=== PATIENT | male | born 1970 | race Caucasian/White ===

== ENCOUNTER → 2021-12-27 15:21 | Outpatient (BNVA) | payer OTHER, SELFPAY | PROVIDERS: PCP Emergency Medicine Emergency Medical Services; Referring Provider Emergency Medicine Emergency Medical Services; Visit Provider Internal Medicine | DX: E10.40 Type 1 diabetes mellitus with diabetic neuropathy, unspecified (principal); E10.22 Type 1 diabetes mellitus with diabetic chronic kidney disease; N18.9 Chronic kidney disease, unspecified; Z79.4 Long term (current) use of insulin; N52.9 Male erectile dysfunction, unspecified; E78.5 Hyperlipidemia, unspecified; R00.0 Tachycardia, unspecified; E55.9 Vitamin D deficiency, unspecified | CPT/HCPCS: 99204 ==

== ENCOUNTER 2023-02-21 14:43 | Inpatient (IN) | payer OTHER, SELFPAY ==
[2023-02-21 14:46] VITALS: BP 114/62; PULSE 98; RESP 14; TEMP 36.6; O2SAT 96; BMI 23.0
--- NOTE | 2023-02-21 15:03 | XRR_ITS ---
PROCEDURE INFORMATION: Exam: XR Chest Exam date and time: 02/21/2023 3:06 PM Age: 52 years old Clinical indication: Pain; Patient HX: Weakness; Fatigue; Chest pressure TECHNIQUE: Imaging protocol: Radiologic exam of the chest. Views: 1 view. COMPARISON: No relevant prior studies available. FINDINGS: Lungs: Unremarkable. No consolidation. Pleural spaces: Unremarkable. No pleural effusion. No pneumothorax. Heart/Mediastinum: Unremarkable. No cardiomegaly. Bones/joints: Unremarkable. XR/XR chest 1V portable [id number] IMPRESSION: No acute findings.
--- NOTE | 2023-02-21 15:03 | W.ED.WEAKNES ---
Documented by User: MARCELLA Thornton 02/25/23 07:19 HPI - Weakness General: Chief complaint: Weakness Stated complaint: [facility] Time Seen by Provider: 02/21/23 14:48 Source: patient and family (friend) Mode of arrival: EMS Limitations: no limitations History of Present Illness: Patient is a nice 52-year-old male who presents to ED today at the request of the MD. Patient states [facility] and they noted him to be pale and diaphoretic. They try to obtain EKG but could not get stickers on him due to the sweatiness. They sent him to the emergency department for further evaluation. Patient upon arrival only has the complaint of generalized fatigue and weakness that he states has been present for many months. He has no acute complaints at this time. He does not complain of chest pain, shortness of breath, difficulty breathing. He states his only past medical history is diabetes. Reports states at the MD blood sugars were in the 300s by EMS got a blood sugar of 88. Patient states his blood sugars normally run anywhere from 250-300. MD Complaint: generalized weakness (fatigue) Onset (ago): month(s) Duration: constant Location: generalized Migration: none Severity: moderate Relieving factors: none Exacerbating factors: none Associated symptoms: Reports no associated symptoms; Denies chest pain, chills, confusion, dysuria, fever(s), headache(s), nausea, syncope or vomiting Review of Systems Const: Reports: other (reports generalized fatigue); Denies: fever(s), chills, body aches or malaise Eyes: Denies: change in vision or blurry vision Card: Denies: chest pain, palpitations, irregular heart rhythm, lightheadedness, syncope or dyspnea on exertion Resp: Denies: dyspnea, productive cough or pain on inspiration GI: Denies: abdominal pain, nausea, vomiting, heartburn or diarrhea : Denies: difficulty urinating or dysuria Musc: Denies: neck pain, back pain or joint pain Skin/Breast: Denies: rash Neuro: Denies: headache(s), numbness in extremities, weakness in extremities, sensory changes, lack of coordination, difficulty walking, dizziness, confusion or behavioral changes [facility] ED PFSH: Medical History Hyperlipidemia Hypertension Type 1 diabetes Surgical History History of inguinal hernia repair History of thumb surgery Social History Smoking and tobacco status: never smoked Physical Exam Const: COMMON NORMALS: no acute distress, patient oriented x3, no limitations, alert and well nourished GENERAL APPEARANCE: cooperative and appears older than stated age ORIENTATION/CONSCIOUSNESS: Yes awake, Yes oriented to person, Yes oriented to place and Yes oriented to time OTHER: appears slightly pale; states he feels tired HENMT: COMMON NORMALS: normocephalic and atraumatic HEAD & SCALP: normal to inspection, normocephalic and atraumatic Eye: COMMON NORMALS: no scleral icterus Neck/C-Spine: COMMON NORMALS: full ROM, no lymphadenopathy, supple and no meningeal signs Chest: COMMONS NORMALS: normal inspection of the chest and normal palpation of entire chest wall Resp: COMMON NORMALS: normal respiratory effort and clear to auscultation bilaterally AUSCULTATION: clear to auscultation bilaterally Cardio: COMMON NORMALS: regular rate and regular rhythm RATE: regular rate RHYTHM: regular rhythm GI: COMMON NORMALS: Normal to inspection, nondistended, normoactive bowel sounds present, Soft to palpation, non-tender, No hepatosplenomegaly present and no masses PALPATION: Yes Soft to palpation and Yes No hepatosplenomegaly present : COMMON NORMALS: Yes no CVA tenderness BLADDER/KIDNEY EXAM: Yes no CVA tenderness Back/Pelvis: COMMON NORMALS: no CVA tenderness, thoracic and lumbar spine normal to inspection, no thoracic nor lumbar tenderness and thoraco-lumbar ROM normal Extremity: COMMON NORMALS: normal to inspection, capillary refill normal, no joint enlargement, no clubbing, cyanosis or edema, no calf tenderness and no pedal edema GENERAL: Yes normal exam except as noted Neuro: EMANUEL COMA SCALE: document GCS findings Emanuel coma scale eye opening: Spontaneous [place] coma scale verbal response: Orientated [place] coma scale motor response: Obey commands [place] coma scale total score: 15 COMMON NORMALS: patient oriented x3, CN's II-XII intact bilaterally, moves all extremities, no focal motor deficits and no sensory deficits noted SENSORIUM/ORIENTATION: Yes alert, Yes oriented to person, Yes oriented to place and Yes oriented to time MENINGEAL SIGNS: Yes no meningeal signs Skin: COMMON NORMALS: no rashes or lesions noted GENERAL SKIN EXAM: no rashes or lesions noted Course Consultations: Consultation #1: Dr. Prakash-reviewed EKG, agrees with heparin anticoagulation, would like to continue to trend troponins, recommend have patient NPO at midnight and he will consult on need for possible cath Consultation #2: Dr. Billingsley-accepts hospitalization Vital Signs: Vital signs: Vital Signs Temperature 97.8 F 02/24/23 04:00 Pulse Rate 94 02/24/23 09:24 Respiratory Rate 29 H 02/24/23 04:00 Blood Pressure 155/88 02/24/23 04:00 Pulse Oximetry 99 02/24/23 04:00 Oxygen Delivery Me thod Room Air 02/24/23 08:00 MDM - Weakness Medical Decision Making Patient is a nice 52-year-old male with a history of diabetes here [facility] Apparently while there he became pale and diaphoretic. EKG was not able to be obtained. They called an ambulance to bring patient here. Upon arrival patient's only complaint is fatigue and weakness which she states has been present for several months. Patient has had no complaints of chest pain. EKG obtained showing inverted T waves in inferior leads. Baseline troponin is 152. Glucose in the 40s on CMP. He was given juice and will recheck. Discussed with Dr. Prakash who agrees with heparin anticoagulation. Recommend continuing to trend troponins. NPO at midnight. We will consult on patient and the need for cardiac cath. Spoke to Dr. Billingsley who will admit the patient. Dr. Robles aware of patient and agrees with care plan. Lab Data 02/23/23 05:30 02/24/23 03:23 Radiology Impressions Chest X-Ray 02/21/23 15:03 IMPRESSION: No acute findings. Laboratory Results WBC 6.42 10^3/uL (3.29-11.43) 02/21/23 15:17 RBC 3.55 10^6/uL (3.85-5.65) L 02/21/23 15:17 Hgb 10.20 g/dL (11.27-16.99) L 02/21/23 15:17 Hct 29.2 % (37-53) L 02/21/23 15:17 MCV 82.3 fl (82-101) 02/21/23 15:17 MCH 28.7 pg (27-33) 02/21/23 15:17 MCHC 34.9 g/dL (30-55) 02/21/23 15:17 RDW 12.5 % (12.1-15.1) 02/21/23 15:17 Plt Count 284 10^3/cmm (157-399) 02/21/23 15:17 MPV 7.7 fL (7.4-10.4) 02/21/23 15:17 Neut % (Auto) 53.6 % 02/21/23 15:17 Lymph % (Auto) 29.8 % 02/21/23 15:17 Gillespie % (Auto) 9.5 % 02/21/23 15:17 Eos % (Auto) 4.2 % 02/21/23 15:17 Baso % (Auto) 1.7 % 02/21/23 15:17 Neut # (Auto) 3.44 10^3/uL (1.8-7.7) 02/21/23 15:17 Lymph # (Auto) 1.9 10^3/uL (0.8-4.8) 02/21/23 15:17 Gillespie # (Auto) 0.6 10^3/uL (0.2-0.9) 02/21/23 15:17 Eos # (Auto) 0.3 10^3/uL (0.0-0.8) 02/21/23 15:17 Baso # (Auto) 0.1 10^3/uL (0.0-0.1) 02/21/23 15:17 Nucleated RBC % (auto) 0 % 02/21/23 15:17 Nucleated RBCs # 0.0 /100WBC 02/21/23 15:17 D-Dimer 0.80 ug/mLFEU (0-0.59) H 02/21/23 15:17 Sodium 139 mmol/L (136-145) 02/21/23 15:17 Potassium 4.0 mmol/L (3.5-5.1) 02/21/23 15:17 Chloride 101 mmol/L (98-107) 02/21/23 15:17 Carbon Dioxide 27 mmol/L (22-29) 02/21/23 15:17 Anion Gap 15.0 (5-19) 02/21/23 15:17 BUN 26 mg/dL (6-20) H 02/21/23 15:17 Creatinine 1.5 mg/dL (0.7-1.2) H 02/21/23 15:17 GFR Calculation 49.3 mL/min (90-130) L 02/21/23 15:17 Glucose 46 mg/dL (65-115) L 02/21/23 15:17 Estimat Average Glucose 364 02/21/23 15:17 Hemoglobin A1c 14.3 % (4.0-6.0) H 02/21/23 15:17 Calculated Osmolality 290 mOsm/kg (285-295) 02/21/23 15:17 Calcium 8.7 mg/dL (8.5-10.5) 02/21/23 15:17 Total Bilirubin 0.2 mg/dL (0.15-1.2) 02/21/23 15:17 AST 11 U/L (0-40) 02/21/23 15:17 ALT 13 U/L (0-41) 02/21/23 15:17 Alkaline Phosphatase 153 U/L (40-130) H 02/21/23 15:17 Troponin T Baseline 152 ng/L (0-15) H* 02/21/23 15:17 Total Protein 5.8 g/dL (6.6-8.7) L 02/21/23 15:17 Albumin 3.5 g/dL (3.5-5.2) 02/21/23 15:17 Globulin 2.3 g/dL (1.3-4.6) 02/21/23 15:17 Urine Color Straw (Yellow) 02/21/23 15:48 Urine Appearance Clear (CLEAR) 02/21/23 15:48 Urine pH 5 (5-7) 02/21/23 15:48 Ur Specific [place] 1.010 (1.005-1.030) 02/21/23 15:48 Urine Protein 2+ (Negative) H 02/21/23 15:48 Urine Glucose (UA) 4+ (Normal) H 02/21/23 15:48 Urine Ketones Negative (Negative) 02/21/23 15:48 Urine Blood 3+ (Negative) H 02/21/23 15:48 Urine Nitrate Negative (Negative) 02/21/23 15:48 Urine Bilirubin Neg (Negative) 02/21/23 15:48 Urine Urobilinogen Norm mg/dL (Negative) 02/21/23 15:48 Ur Leukocyte Esterase Negative (Negative) 02/21/23 15:48 Urine RBC 5-10 /hpf (0-2) H 02/21/23 15:48 Urine WBC 0-4 /hpf (0-5) H 02/21/23 15:48 Ur Squamous Epith Cells 0-4 /hpf (0-5) H 02/21/23 15:48 Amorphous Sediment Not Reportable 02/21/23 15:48 Urine Bacteria Trace /hpf (NONE) 02/21/23 15:48 All radiology interpretation(s) finalized by discharge EKG Data EKG 1: EKG interpretation date: 02/21/23 EKG interpretation time: 15: Prior EKG tracings: not available for review Ischemic changes: acute NSTEMI Interpretation: Patient has inverted inferior T waves Sinus rhythm Rate 85 Discharge Plan Discharge Patient Disposition: Admitted As Inpatient Admit Provider: Ammon Billingsley Clinical Impression: Hypoglycemia, Acute non-ST elevation myocardial infarction (NSTEMI) Condition: Stable Discharge Diet: Cardiac Coding Level of Care Code ED Media Production Manager for Chg Fwd Documented by User: Walter Robles MD 02/21/23 17:10 HPI - Weakness General: Chief complaint: Weakness Stated complaint: [facility] Time Seen by Provider: 02/21/23 14:48 PFSH ED PFSH: Medical History Hyperlipidemia Hypertension Type 1 diabetes Surgical History History of inguinal hernia repair History of thumb surgery Social History Smoking and tobacco status: never smoked Physical Exam Neuro: EMANUEL COMA SCALE: document GCS findings [place] coma scale total score: 15 Course Vital Signs: Vital signs: Vital Signs Temperature 97.8 F 02/24/23 04:00 Pulse Rate 94 02/24/23 09:24 Respiratory Rate 29 H 02/24/23 04:00 Blood Pressure 155/88 02/24/23 04:00 Pulse Oximetry 99 02/24/23 04:00 Oxygen Delivery Me thod Room Air 02/24/23 08:00 MDM - Weakness Medical Decision Making Patient is a nice 52-year-old male with a history of diabetes here after he was sent from the [facility]. Apparently while there he became pale and diaphoretic. EKG was not able to be obtained. They called an ambulance to bring patient here. Upon arrival patient's only complaint is fatigue and weakness which she states has been present for several months. Patient has had no complaints of chest pain. EKG obtained showing inverted T waves in inferior leads. Baseline troponin is 152. Glucose in the 40s on CMP. He was given juice and will recheck. Discussed with Dr. Prakash who agrees with heparin anticoagulation. Recommend continuing to trend troponins. NPO at midnight. We will consult on patient and the need for cardiac cath. Spoke to Dr. Billingsley who will admit the patient. Dr. Robles aware of patient and agrees with care plan. Dr. Robles Discussed case with Dorothea. Reviewed EKG. Reviewed labs. Reviewed vitals. Discussed plan of action and encouraged heparin drip, cardiology consult, admission for NSTEMI and abnormal EKG. Lab Data 02/23/23 05:30 02/24/23 03:23 Radiology Impressions Chest X-Ray 02/21/23 15:03 IMPRESSION: No acute findings. Laboratory Results WBC 6.42 10^3/uL (3.29-11.43) 02/21/23 15:17 RBC 3.55 10^6/uL (3.85-5.65) L 02/21/23 15:17 Hgb 10.20 g/dL (11.27-16.99) L 02/21/23 15:17 Hct 29.2 % (37-53) L 02/21/23 15:17 MCV 82.3 fl (82-101) 02/21/23 15:17 MCH 28.7 pg (27-33) 02/21/23 15:17 MCHC 34.9 g/dL (30-55) 02/21/23 15:17 RDW 12.5 % (12.1-15.1) 02/21/23 15:17 Plt Count 284 10^3/cmm (157-399) 02/21/23 15:17 MPV 7.7 fL (7.4-10.4) 02/21/23 15:17 Neut % (Auto) 53.6 % 02/21/23 15:17 Lymph % (Auto) 29.8 % 02/21/23 15:17 Gillespie % (Auto) 9.5 % 02/21/23 15:17 Eos % (Auto) 4.2 % 02/21/23 15:17 Baso % (Auto) 1.7 % 02/21/23 15:17 Neut # (Auto) 3.44 10^3/uL (1.8-7.7) 02/21/23 15:17 Lymph # (Auto) 1.9 10^3/uL (0.8-4.8) 02/21/23 15:17 Gillespie # (Auto) 0.6 10^3/uL (0.2-0.9) 02/21/23 15:17 Eos # (Auto) 0.3 10^3/uL (0.0-0.8) 02/21/23 15:17 Baso # (Auto) 0.1 10^3/uL (0.0-0.1) 02/21/23 15:17 Nucleated RBC % (auto) 0 % 02/21/23 15:17 Nucleated RBCs # 0.0 /100WBC 02/21/23 15:17 D-Dimer 0.80 ug/mLFEU (0-0.59) H 02/21/23 15:17 Sodium 139 mmol/L (136-145) 02/21/23 15:17 Potassium 4.0 mmol/L (3.5-5.1) 02/21/23 15:17 Chloride 101 mmol/L (98-107) 02/21/23 15:17 Carbon Dioxide 27 mmol/L (22-29) 02/21/23 15:17 Anion Gap 15.0 (5-19) 02/21/23 15:17 BUN 26 mg/dL (6-20) H 02/21/23 15:17 Creatinine 1.5 mg/dL (0.7-1.2) H 02/21/23 15:17 GFR Calculation 49.3 mL/min (90-130) L 02/21/23 15:17 Glucose 46 mg/dL (65-115) L 02/21/23 15:17 Estimat Average Glucose 364 02/21/23 15:17 Hemoglobin A1c 14.3 % (4.0-6.0) H 02/21/23 15:17 Calculated Osmolality 290 mOsm/kg (285-295) 02/21/23 15:17 Calcium 8.7 mg/dL (8.5-10.5) 02/21/23 15:17 Total Bilirubin 0.2 mg/dL (0.15-1.2) 02/21/23 15:17 AST 11 U/L (0-40) 02/21/23 15:17 ALT 13 U/L (0-41) 02/21/23 15:17 Alkaline Phosphatase 153 U/L (40-130) H 02/21/23 15:17 Troponin T Baseline 152 ng/L (0-15) H* 02/21/23 15:17 Total Protein 5.8 g/dL (6.6-8.7) L 02/21/23 15:17 Albumin 3.5 g/dL (3.5-5.2) 02/21/23 15:17 Globulin 2.3 g/dL (1.3-4.6) 02/21/23 15:17 Urine Color Straw (Yellow) 02/21/23 15:48 Urine Appearance Clear (CLEAR) 02/21/23 15:48 Urine pH 5 (5-7) 02/21/23 15:48 Ur Specific [place] 1.010 (1.005-1.030) 02/21/23 15:48 Urine Protein 2+ (Negative) H 02/21/23 15:48 Urine Glucose (UA) 4+ (Normal) H 02/21/23 15:48 Urine Ketones Negative (Negative) 02/21/23 15:48 Urine Blood 3+ (Negative) H 02/21/23 15:48 Urine Nitrate Negative (Negative) 02/21/23 15:48 Urine Bilirubin Neg (Negative) 02/21/23 15:48 Urine Urobilinogen Norm mg/dL (Negative) 02/21/23 15:48 Ur Leukocyte Esterase Negative (Negative) 02/21/23 15:48 Urine RBC 5-10 /hpf (0-2) H 02/21/23 15:48 Urine WBC 0-4 /hpf (0-5) H 02/21/23 15:48 Ur Squamous Epith Cells 0-4 /hpf (0-5) H 02/21/23 15:48 Amorphous Sediment Not Reportable 02/21/23 15:48 Urine Bacteria Trace /hpf (NONE) 02/21/23 15:48 Discharge Plan Discharge Patient Disposition: Admitted As Inpatient Admit Provider: Ammon Billingsley Clinical Impression: Hypoglycemia, Acute non-ST elevation myocardial infarction (NSTEMI) Condition: Stable Discharge Diet: Cardiac Coding Level of Care Code ED Media Production Manager for Jason Hillman
--- NOTE | 2023-02-21 15:04 | PC.PHAR ---
WILNER ROBERTSON FOR MED LIST 02/21/23 3:05 PM
[2023-02-21 15:19] VITALS: BP 114/62; PULSE 93; RESP 18; O2SAT 96
--- NOTE | 2023-02-21 15:23 | ECG_ITS ---
[facility] Test Date: 2023-02-21 Pat Name: Trang Teran Department: Room: Gender: Male Lav Crewman: : 1970 Requested By: Dorothea Bloom Order Number: [id number] Macdonald MD: Bertrand Zamora M.D. Measurements Intervals [place] Rate: 85 P: 59 ID: [id number] QRS: 62 QRSD: 130 T: 177 QT: 360 QTc: 429 Interpretive Statements SINUS RHYTHM PROBABLE INFERIOR MYOCARDIAL INFARCTION , PROBABLY OLD [35 ms Q WAVE IN II/aVF] MODERATE T-WAVE ABNORMALITY, CONSIDER LATERAL ISCHEMIA [-0.1+ mV T-WAVE IN I/aVL/V5/V6] No previous ECG available for comparison Electronically Signed On 02-21-2023 16:20:02 CDT by Bertrand Zamora M.D. [id number]
[2023-02-21 15:25] LABS: Basophils # 0.1 10^3/uL (0.0-0.1); Basophils % 1.7 %; Eosinophils # 0.3 10^3/uL (0.0-0.8); Eosinophils % 4.2 %; Hematocrit 29.2 % (37-53); Lymphocytes # 1.9 10^3/uL (0.8-4.8); Lymphocytes % 29.8 %; Mean Corpuscular HGB Conc 34.9 g/dL (30-55); Mean Corpuscular Hemoglobin 28.7 pg (27-33); Mean Corpuscular Volume 82.3 fl (82-101); Mean Platelet Volume 7.7 fL (7.4-10.4); Monocytes # 0.6 10^3/uL (0.2-0.9); Monocytes % 9.5 %; Neutrophils # 3.44 10^3/uL (1.8-7.7); Neutrophils % 53.6 %; Nucleated Red Blood Cells % 0 %; Platelet Count 284 10^3/cmm (157-399); Red Blood Count 3.55 10^6/uL (3.85-5.65); Red Cell Distribution Width 12.5 % (12.1-15.1); White Blood Count 6.42 10^3/uL (3.29-11.43)
[2023-02-21 15:50] VITALS: BP 113/51; PULSE 98; RESP 18; O2SAT 99
[2023-02-21 15:51] LABS: Alanine Aminotransferase 13 U/L (0-41); Albumin Level 3.5 g/dL (3.5-5.2); Alkaline Phosphatase 153 U/L (40-130); Aspartate Amino Transferase 11 U/L (0-40); Blood Urea Nitrogen 26 mg/dL (6-20); Calcium 8.7 mg/dL (8.5-10.5); Carbon Dioxide 27 mmol/L (22-29); Chloride 101 mmol/L (98-107); Globulin 2.3 g/dL (1.3-4.6); Glomerular Filtration Rate 49.3 mL/min (90-130); Glucose 46 mg/dL (65-115); Osmolality Calculated 290 mOsm/kg (285-295); Sodium 139 mmol/L (136-145); Total Bilirubin 0.2 mg/dL (0.15-1.2); Total Protein 5.8 g/dL (6.6-8.7)
[2023-02-21 15:52] LABS: Troponin(5th) Baseline 152 ng/L (0-15)
[2023-02-21 16:12] LABS: Urine Appearance Clear (CLEAR); Urine Color Straw (Yellow)
[2023-02-21 16:13] LABS: Add Urine Culture? No; Add Urine Microscopic? YES; Bacteria Urine TRACE /hpf; Bilirubin Urine Neg (Negative); Blood Urine 3+ (Negative); Glucose Urine UA 4+ (Normal); Ketones Urine Negative (Negative); Leukocyte Esterase Urine Negative (Negative); Nitrate Urine Negative (Negative); Protein Urine 2+ (Negative); Squamous Epithelial Cell Urine 0-4 /hpf (0-5); Urobilinogen Urine Norm (Negative); WBC Urine 0-4 /hpf (0-5); pH Urine 5 (5-7)
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
[2023-02-21] MEDS: heparin 5,000 unit/mL INJ 1 mL IV ×2 (16:35→23:26)
[2023-02-21] MEDS: heparin drip 25,000 UNIT/500 ML PREMIX 22 UNIT IV (16:40)
[2023-02-21 16:41] VITALS: BP 132/70; PULSE 90; RESP 18; O2SAT 99
[2023-02-21 16:47] LABS: Glucose Point of Care 204 mg/dL (70-110)
--- NOTE | 2023-02-21 17:12 | ECG_ITS ---
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 Measurements Intervals [place] Rate: 87 P: 47 VA: 187 QRS: 24 QRSD: 118 T: 184 QT: 379 QTc: 457 Interpretive Statements SINUS RHYTHM INFERIOR MYOCARDIAL INFARCTION , PROBABLY OLD [40+ ms Q WAVE AND/OR ST/T ABNORMALITY IN II/aVF] MODERATE T-WAVE ABNORMALITY, CONSIDER LATERAL ISCHEMIA [-0.1+ mV T-WAVE IN I/aVL/V5/V6] Compared to ECG 02/21/2023 15:23:06 No significant changes Electronically Signed On 02-21-2023 17:37:29 CDT by Bertrand Zamora M.D. [email or web address]/[id number]
[2023-02-21 17:42] LABS: Troponin 5 2HR Delta -34.1 ABS# (0-10)
[2023-02-21 17:43] LABS: Troponin 5 2HR 117.9 ng/L (0-15)
--- NOTE | 2023-02-21 17:43 | P.CONIM_ITS ---
Providers/Reason For Consult Consulting Physician/Specialty*: Bertrand Zamora MD/ Cardiology Reason for Consult*: NSTEMI Requesting Physician: Dr Billingsley Attending Physician: Ammon Billingsley MD Primary Care Provider: Jhonatan Malloy DO History of Present Illness History of Present Illness Trang Teran is a 52 year old male with no significant prior cardiac history, history of hypertension, hyperlipidemia, diabetes who was sent from [place] [facility] after he got weak and sweaty there. He was found to have elevated troponin over 150. It has trended down. He denies significant chest discomfort however still feeling weak. One of his initial blood glucose levels were 46. EKG shows normal sinus rhythm with possible lateral ischemia. 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) blood-glucose sensor (Dexcom G6 #9 ea 12/27/21 02/21/23 Unknown Rx Sensor device) blood-glucose transmitter (Dexcom #3 ea 12/27/21 02/21/23 Unknown Rx G6 Transmitter device) cholecalciferol (vitamin D3) 50 50 mcg PO DAILY 12/27/21 02/21/23 02/21/23 History mcg (2,000 unit) capsule insulin aspart U-100 100 unit/mL 20 unit SUBCUT TID 12/27/21 02/21/23 02/21/23 History subcutaneous cartridge insulin glargine 100 unit/mL 20 unit SUBCUT DAILY 12/27/21 02/21/23 02/20/23 History subcutaneous solution insulin syringe-needle U-100 1 mL 12/27/21 02/21/23 Unknown History 31 gauge x 5/16 (BD Insulin Syringe Ultra-Fine) lancets (Accu-Chek Softclix 12/27/21 02/21/23 Unknown History Lancets) Allergies Allergy/AdvReac Type Severity Reaction Status Date / Time No Known Allergies Allergy Verified 02/21/23 14:53 Current Medications Generic Name Dose Route Start Last Admin Trade Name Freq PRN Reason Stop Dose Admin Heparin Sodium (Porcine) 0 unit 02/21/23 16:29 02/21/23 16:35 Heparin 5,000 Unit/Ml Inj 1 Ml IV 3,900 unit PRN PRN Administration Heparin weight-base protocol Protocol Heparin Sodium/Sodium Chloride 25,000 unit in 500 mls @ 0 mls/hr 02/21/23 16:3 0 02/21/23 16:40 Heparin Drip IV 14.27 unit/kg/hr .Q0M AMOS 22 mls/hr Administration Protocol Per Protocol PFSH Acute PFSH: Medical History Hyperlipidemia Hypertension Type 1 diabetes Surgical History History of inguinal hernia repair History of thumb surgery Social History Smoking and tobacco status: never smoked Vitals/I&O/Wt Last Vital Signs Temp 97.8 F 02/21/23 14:46 Pulse 90 02/21/23 16:41 Resp 18 02/21/23 16:41 BP 132/70 02/21/23 16:41 Pulse Ox 99 02/21/23 16:41 O2 Del Method Room Air 02/21/23 16:41 Weight last 48 hrs Weight 170 lb Physical Exam Narrative: GENERAL: Patient is alert, awake and oriented x3. [] NECK: No jugular vein distension. [] HEENT: No cyanosis. No icterus. No pallor. [] HEART: Regular S1 and S2. No murmur, rub or gallop. [] LUNGS: Clear to auscultate bilaterally. [] CENTRAL NERVOUS SYSTEM: Grossly nonfocal. [] EXTREMITIES: Lower extremities with 1+ edema bilaterally. Pulses palpable in the lower extremities, both dorsalis pedis and posterior tibial. [] Data 02/22/23 05:29 02/22/23 05:29 A&P Assessment and plan (1) Troponin level elevated: (2) Type 1 diabetes: (3) Hyperlipidemia: (4) CKD (chronic kidney disease): Plan Patient's symptoms are atypical. Diaphoresis and weakness could be secondary to hypoglycemia. Troponins are trending down. We will proceed with stress test tomorrow. If it is abnormal, we will proceed with coronary angiogram with possible percutaneous coronary intervention. Medical therapy per primary team Continue aspirin IV fluids Order echocardiogram Thank you for involving us with care of this patient. We will continue to follow. Please call with questions. Consult Attestations Medical Necessity Statement: Care expected to cross 2 midnights. Coding Level [facility] Troponin level elevated R77.8 Type 1 diabetes E10.9 Hyperlipidemia E78.5 CKD (chronic kidney disease) N18.9
--- NOTE | 2023-02-21 18:02 | USCV_ITS ---
Trang Teran Age: 52 Gender: M : 1970 Exam Date: 02/21/2023 18:36 Ordering Phys: Ammon Billingsley MD Technologist: LG Exam Location: [facility] [place] Indication: NSTEMI. No history of cardiac intervention per patient. BP: 132 / 70 HR: 92 Rhythm: Sinus Technical Quality: Adequate MEASUREMENTS (Male / Female) Normal Values 2D ECHO LV Diastolic Diameter PLAX 4.9 cm 4.2 - 5.9 / 3.9 - 5.3 cm LV Systolic Diameter PLAX 3.9 cm IVS Diastolic Thickness 1.6 cm 0.6 - 1.0 / 0.6 - 0.9 cm IVS Systolic Thickness 2.2 cm LVPW Diastolic Thickness 1.7 cm 0.6 - 1.0 / 0.6 - 0.9 cm LVPW Systolic Thickness 2.1 cm LVOT Diameter 2.3 cm LV Ejection Fraction 2D Teich 40.3 % LV Ejection Fraction MOD 2C 57.8 % LV Ejection Fraction 2C AL 59.7 % LA Diameter 4.9 cm LA Width 4.4 cm LA Height 5.5 cm RA Width 3.2 cm RA Height 4.6 cm Aorta at Sinotubular Diameter 3.1 cm IVC Diameter 1.8 cm M-MODE Aortic Annulus Diameter 3.3 cm LA Ao Ratio MM 1.5 MV E Point Septal Separation 0.6 cm DOPPLER AV Peak Velocity 92.0 cm/s LVOT Peak Velocity 54.0 cm/s AV Area Cont Eq vti 2.5 cm squared AV Area Cont Eq pk 2.4 cm squared MV Peak Velocity 90.0 cm/s MV Area PHT 2.2 cm squared Mitral E to A Ratio 1.1 MV E' Velocity 48.6 cm/s Mitral E to MV E' Ratio 12.6 Mitral E to LV E' Lateral Ratio 11.7 Mitral E to LV E' Septal Ratio 13.9 TV Peak E Velocity 44.0 cm/s PV Peak Velocity 72.0 cm/s RV Acceleration Time 0.1 s RV Ejection Time 0.3 s RV AcT/ET 0.4 FINDINGS Left Ventricle Mild diffuse hypokinesia of the left ventricle with an ejection fraction of around 40% Right Ventricle The right ventricle is normal in size and function. Right Atrium The right atrium is normal in size. Left Atrium Mildly increased left atrial size. Mitral Valve Mild mitral valve regurgitation. Aortic Valve Minimally thickened aortic valve Tricuspid Valve Trace to mild tricuspid valve regurgitation. Pulmonic Valve Trace pulmonary valve regurgitation. Pericardium Normal pericardium without effusion. Aorta Normal ascending aorta dimension. IVC The inferior vena cava appears normal. CONCLUSIONS Mild diffuse hypokinesia of the left ventricle with an ejection fraction of around 40%. Mildly increased left atrial size. Mild mitral valve regurgitation. Trace to mild tricuspid valve regurgitation. Trace pulmonary valve regurgitation. PA pressure could not be calculated because of the poor Doppler signal There is no pericardial effusion. There are no intracardiac masses. No similar previous studies are available for comparison Dr Lizette Bartlett MD [facility] (Electronically Signed) Final Date: 22 February 2023 11:07 S
[2023-02-21 18:16] LABS: Glucose Point of Care 237 mg/dL (70-110)
--- NOTE | 2023-02-21 18:21 | ECG_ITS ---
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 Interpretive Statements NAME OF STUDY: LEXISCAN SESTAMIBI STRESS TEST INDICATION: [UA, ] Procedure: At the baseline, the blood pressure was 103/60 mmHg with a heart rate of 90 bpm. The electrocardiogram showed normal sinus rhythm, normal axis with normal ST and T's and interventricular conduction delay. The Lexiscan was infused over a period of 20 seconds. A total of 0.4 mg of Lexiscan was infused. The stress phase was continued for a total of 5 minutes. Heart rate was at the end of stress phase was 97 bpm and a blood pressure of 99/53 mmHg. The EKG at the peak infusion revealed normal sinus rhythm with no significant ST-T wave changes. Sestamibi was injected 20 seconds after the Lexiscan infusion. Blood pressure at the end of recovery phase was 86/49 mmHg with a heart rate of 83 bpm. Conclusion: 1. Normal EKG response to Lexiscan infusion 2. No Lexiscan induced chest pain or cardiac arrhythmia. 3. Normal blood pressure and heart rate response. 4. Sestamibi/sestamibi perfusion scan pending; see separate report. Electronically Signed On 03-04-2023 12:30:59 CDT by Bertrand Zamora M.D. [id number]
[2023-02-21] MEDS: insulin lispro 100 unit/1 mL SUBCUT (18:30)
[2023-02-21] MEDS: aspirin 325 mg EC Tablet PO (18:30)
[2023-02-21 18:58] LABS: Thyroid Stimulating Hormone 2.74 uIU/mL (0.27-4.20); Vitamin B12 424 pg/mL (232-1245)
[2023-02-21 19:52] LABS: Estmated Average Glucose 364; Hemoglobin A1C 14.3 % (4.0-6.0)
[2023-02-21 20:48] VITALS: BP 152/77; PULSE 93; RESP 23; TEMP 37.2; O2SAT 91
[2023-02-21 21:12] LABS: Glucose Point of Care 299 mg/dL (70-110)
[2023-02-21 21:51] LABS: Troponin 5 6HR 101.8 ng/L (0-15)
[2023-02-21 22:08] VITALS: PULSE 89
[2023-02-21 23:06] LABS: Partial Thromboplastin Time 34.9 SECONDS (23.9-36.7)
[2023-02-22] VITALS (10 sets, daily range): BP systolic 86–148; BP diastolic 49–84; PULSE 83–95; RESP 13–17; TEMP 36.4–36.9; O2SAT 95–100
--- NOTE | 2023-02-22 05:08 | PC.NURSE ---
This RN agrees with documention by SN Romana.
[2023-02-22 05:38] LABS: Basophils # 0.1 10^3/uL (0.0-0.1); Basophils % 1.5 %; Eosinophils # 0.2 10^3/uL (0.0-0.8); Hematocrit 27.2 % (37-53); Lymphocytes # 2.4 10^3/uL (0.8-4.8); Lymphocytes % 39.9 %; Mean Corpuscular HGB Conc 34.6 g/dL (30-55); Mean Corpuscular Hemoglobin 28.4 pg (27-33); Mean Corpuscular Volume 82.2 fl (82-101); Mean Platelet Volume 7.8 fL (7.4-10.4); Monocytes # 0.5 10^3/uL (0.2-0.9); Monocytes % 7.5 %; Neutrophils # 2.79 10^3/uL (1.8-7.7); Neutrophils % 46.1 %; Nucleated Red Blood Cells % 0 %; Platelet Count 251 10^3/cmm (157-399); Red Blood Count 3.31 10^6/uL (3.85-5.65); Red Cell Distribution Width 12.5 % (12.1-15.1); White Blood Count 6.04 10^3/uL (3.29-11.43)
[2023-02-22 05:52] LABS: Partial Thromboplastin Time 65.7 SECONDS (23.9-36.7)
[2023-02-22 05:58] LABS: Anion Gap 11.5 (5-19); Blood Urea Nitrogen 25 mg/dL (6-20); C Reactive Protein 3.2 mg/L (0.0-4.9); Calcium 8.8 mg/dL (8.5-10.5); Carbon Dioxide 28 mmol/L (22-29); Chloride 100 mmol/L (98-107); Glomerular Filtration Rate 53.4 mL/min (90-130); Glucose 268 mg/dL (65-115); Magnesium 2.1 mg/dL (1.7-2.3); Osmolality Calculated 294 mOsm/kg (285-295); Potassium 4.5 mmol/L (3.5-5.1); Sodium 135 mmol/L (136-145)
--- NOTE | 2023-02-22 06:00 | NMCV_ITS ---
NM cari perf SPECT r/s* [id number] Trang Teran Age: 52 Gender: M : 1970 Exam Date: 02/22/2023 06:05 Ordering Phys: Ammon Billingsley MD Technologist: ABBY Rinaldi Exam Location: [facility] Indications: CHEST PAIN STRESS TEST Please see separate stress test report in [facility] for full findings IMAGE PROTOCOL Rest/Stress 1 Lexiscan Day Radiopharmaceutical Dose (mCi) Administration Site Administered by Rest: Tc-99m 10.9 IV Oswaldo Aldridge, VIOLIN MECHANIC Sestamibi Stress:Tc-99m 32.9 IV Oswaldo Aldridge, VIOLIN MECHANIC Sestamibi Rest: 22-Feb-2023 60 Discovery 630 Stress: 22-Feb-2023 30 Discovery 630 0.4mg Lexiscan. Images obtained in supine and prone position. SPECT RESULTS Technical Quality: Excellent Raw Data Analysis: Normal Image Corrections: No attenuation or motion correction applied Summed Stress Score: 21 Summed Rest Score: 14 Summed Difference Score: 8 PERFUSION FINDINGS There is a large in size, reversible perfusion defect noted in the inferolateral and anterolateral fernández. This is consistwnt with large area of ischemia in the left circumflex artery territory. There is large sized mostly fixed perfusion defect noted in the inferior wall. This is consistent with large sized prior infarct with minimal mana-infarct ischemia in the RCA territory. FUNCTIONAL RESULTS (calculated via Gated SPECT) Stress Image LV EF (%): 29 Stress EDV (mL):186 TID: 0.9 Stress ESV (mL):132 FUNCTIONAL FINDINGS: LV systolic function is severely reduced with EF of 29% IMPRESSIONS 1. Abnormal myocardial perfusion imaging with large area of ischemia seen in left circumflex artery territory. 2. Large sized area of prior infarct with minimal mana-infarct ischemia seen in RCA territory. 3. LV systolic function is severely reduced. Bertrand Zamora MD (Electronically Signed) Final Date: 22 February 2023 10:22 S
--- NOTE | 2023-02-22 06:04 | PC.NURSE ---
PTT 65.7. No changes made to heparin drip at this time.
[2023-02-22 06:43] LABS: Glucose Point of Care 320 mg/dL (70-110)
--- NOTE | 2023-02-22 06:57 | PC.NURSE ---
Heparin drip stopped at this time per nuclear medicine request. Patient taken to nuc med for cardiac stress test.
[2023-02-22] MEDS: regadenoson 0.4 Mg/5 ml Syringe IVP (07:21)
--- NOTE | 2023-02-22 08:04 | PC.NURSE ---
pt off unit for stress test
[2023-02-22 09:05] LABS: Glucose Point of Care 342 mg/dL (70-110)
[2023-02-22] MEDS: atorvastatin 40 mg Tablet 80 MG PO (09:05)
[2023-02-22] MEDS: insulin lispro 100 unit/1 mL SUBCUT ×3 (09:05→17:30)
[2023-02-22] MEDS: aspirin 81 mg EC Tablet PO (09:05)
[2023-02-22] MEDS: sennosides-docusate Tablet 1 TAB PO (09:05)
[2023-02-22] MEDS: clopidogrel 75 mg Tablet PO (09:05)
--- NOTE | 2023-02-22 10:50 | PM.PN ---
Subjective Subjective: Abnormal stress test No active chest pain No episode of diaphoresis Patient to go for angiogram tomorrow Continue heparin for 48 hours Vitals/I&O/Wt Last Vital Signs Temp 97.6 F 02/22/23 08:00 Pulse 95 02/22/23 08:13 Resp 16 02/22/23 08:00 BP 86/49 02/22/23 08:13 Pulse Ox 98 02/22/23 08:00 O2 Del Method Room Air 02/22/23 08:00 02/21/23 02/22/23 02/22/23 22:59 06:59 14:59 Intake Total 240 / 240 628.867 / 868.867 240 / 240 Output Total 500 / 500 1400 / 1900 Balance -260 / -260 -771.133 / -1031.133 240 / 240 Weight last 48 hrs Weight 77.111 kg Physical Exam Narrative: No active chest pain S1, S2 GCS 15 Pleasant and cooperative Currently on room air euvolemic No new focal deficit Data 02/22/23 05:29 02/22/23 05:29 A&P Assessment and plan (1) Non-ST elevation (NSTEMI) myocardial infarction: (2) Type 1 diabetes: (3) Erectile dysfunction: (4) Hyperlipidemia: (5) TIKI (acute kidney injury): Plan Non-STEMI Continue heparin for 48 hours Abnormal stress test Patient is going for angiogram tomorrow N.p.o. 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 Zamora notified me about the stress test report Attestations Medical Necessity Statement*: Continue medical management Diagnoses Non-ST elevation (NSTEMI) myocardial infarction I21.4 Type 1 diabetes E10.9 Erectile dysfunction N52.9 Hyperlipidemia E78.5 TIKI (acute kidney injury) N17.9
[2023-02-22 11:26] LABS: Glucose Point of Care 356 mg/dL (70-110)
--- NOTE | 2023-02-22 13:18 | P.PN_ITS ---
Subjective Subjective: Patient is doing well. Stress test has significant ischemia. Vitals/I&O/Wt Last Vital Signs Temp 98.4 F 02/22/23 11:53 Pulse 90 02/22/23 11:53 Resp 13 02/22/23 11:53 BP 115/69 02/22/23 11:53 Pulse Ox 95 02/22/23 11:53 O2 Del Method Room Air 02/22/23 11:53 02/21/23 02/22/23 02/22/23 22:59 06:59 14:59 Intake Total 240 / 240 628.867 / 868.867 600 / 600 Output Total 500 / 500 1400 / 1900 Balance -260 / -260 -771.133 / -1031.133 600 / 600 Weight last 48 hrs Weight 170 lb Physical Exam Narrative: GENERAL: Patient is alert, awake and oriented x3. [] NECK: No jugular vein distension. [] HEENT: No cyanosis. No icterus. No pallor. [] HEART: Regular S1 and S2. No murmur, rub or gallop. [] LUNGS: Clear to auscultate bilaterally. [] CENTRAL NERVOUS SYSTEM: Grossly nonfocal. [] EXTREMITIES: Lower extremities with 1+ edema bilaterally. Data 02/23/23 05:30 02/23/23 05:30 A&P Assessment and plan (1) Troponin level elevated: (2) Type 1 diabetes: (3) Hyperlipidemia: (4) CKD (chronic kidney disease): Plan Stress test is abnormal. He will need coronary angiogram with possible PCI tomor row. NPO past midnight. LV function is abnormal with EF of 40%. Medical therapy per primary team Continue aspirin IV fluids Thank you for involving us with care of this patient. We will continue to gautam bonds. Please call with questions. Attestations 2 Medical Necessity Statement*: Care expected to cross 2 midnights. Coding Level of Care Code Acute Code for g Fwd Diagnoses Troponin level elevated R77.8 Type 1 diabetes E10.9 Hyperlipidemia E78.5 CKD (chronic kidney disease) N18.9
[2023-02-22 16:36] LABS: Partial Thromboplastin Time 42.9 SECONDS (23.9-36.7)
[2023-02-22 16:40] LABS: Glucose Point of Care 351 mg/dL (70-110)
[2023-02-22] MEDS: heparin drip 25,000 UNIT/500 ML PREMIX 27 UNIT IV (17:29)
[2023-02-22] MEDS: heparin 5,000 unit/mL INJ 1 mL IV (17:30)
[2023-02-22 20:59] LABS: Glucose Point of Care 369 mg/dL (70-110)
[2023-02-23] VITALS (10 sets, daily range): BP systolic 108–146; BP diastolic 60–82; PULSE 86–99; RESP 13–18; TEMP 36.4–36.9; O2SAT 98–100
[2023-02-23 00:02] LABS: Partial Thromboplastin Time 56.6 SECONDS (23.9-36.7)
[2023-02-23 05:44] LABS: Basophils # 0.1 10^3/uL (0.0-0.1); Basophils % 1.6 %; Eosinophils # 0.2 10^3/uL (0.0-0.8); Eosinophils % 3.7 %; Hematocrit 28.8 % (37-53); Lymphocytes # 1.4 10^3/uL (0.8-4.8); Mean Corpuscular HGB Conc 34.4 g/dL (30-55); Mean Corpuscular Hemoglobin 28.4 pg (27-33); Mean Corpuscular Volume 82.8 fl (82-101); Mean Platelet Volume 7.9 fL (7.4-10.4); Monocytes # 0.4 10^3/uL (0.2-0.9); Monocytes % 8.3 %; Neutrophils # 2.98 10^3/uL (1.8-7.7); Neutrophils % 58.8 %; Nucleated Red Blood Cells % 0 %; Platelet Count 265 10^3/cmm (157-399); Red Blood Count 3.48 10^6/uL (3.85-5.65); Red Cell Distribution Width 12.6 % (12.1-15.1); White Blood Count 5.07 10^3/uL (3.29-11.43)
[2023-02-23] MEDS: sodium chloride 0.9% 1,000 ML 75 ML IV (06:07)
[2023-02-23 06:10] LABS: Partial Thromboplastin Time 55.1 SECONDS (23.9-36.7)
[2023-02-23 06:15] LABS: Blood Urea Nitrogen 28 mg/dL (6-20); Calcium 8.9 mg/dL (8.5-10.5); Carbon Dioxide 26 mmol/L (22-29); Glomerular Filtration Rate 58.2 mL/min (90-130); Glucose 434 mg/dL (65-115)
[2023-02-23 06:24] LABS: Glucose Point of Care 422 mg/dL (70-110)
[2023-02-23 06:25] LABS: Anion Gap 11.7 (5-19); Chloride 98 mmol/L (98-107); Osmolality Calculated 296 mOsm/kg (285-295); Potassium 4.7 mmol/L (3.5-5.1); Sodium 131 mmol/L (136-145)
[2023-02-23] MEDS: diphenhydrAMINE 50 mg Capsule PO (06:57)
--- NOTE | 2023-02-23 07:07 | PM.PN ---
Subjective Subjective: Patient is doing well. No chest pain. He had coronary angiogram today that showed 99% stenosis of mid RCA and underwent successful revascularization with 1 stent. Also had severe stenosis of the diagonal artery and underwent successful revascularization with 1 stent. Vitals/I&O/Wt Last Vital Signs Temp 97.6 F 02/23/23 03:57 Pulse 96 02/23/23 05:09 Resp 17 02/23/23 03:57 BP 121/60 02/23/23 03:57 Pulse Ox 98 02/23/23 03:57 O2 Del Method Room Air 02/22/23 23:14 02/22/23 02/23/23 02/23/23 22:59 06:59 14:59 Intake Total 280.95 / 1232.083 200 / 1432.083 Output Total 700 / 700 2400 / 3100 Balance -419.05 / 532.083 -2200 / -1667.917 Weight last 48 hrs Weight 170 lb Physical Exam Narrative: GENERAL: Patient is alert, awake and oriented x3. [] NECK: No jugular vein distension. [] HEENT: No cyanosis. No icterus. No pallor. [] HEART: Regular S1 and S2. No murmur, rub or gallop. [] LUNGS: Clear to auscultate bilaterally. [] CENTRAL NERVOUS SYSTEM: Grossly nonfocal. [] EXTREMITIES: Lower extremities with 1+ edema bilaterally. Data 02/23/23 05:30 02/23/23 05:30 A&P Assessment and plan (1) Troponin level elevated: (2) Type 1 diabetes: (3) Hyperlipidemia: (4) CKD (chronic kidney disease): Plan Patient underwent revascularization of RCA with 1 stent in diagonal artery with 1 stent. Continue dual antiplatelet therapy with aspirin and Plavix. Compliance with dual antiplatelet agents discussed with patient in detail. IV fluids till tomorrow. Monitor renal function closely. Blood glucose level control Thank you for involving us with care of this patient. We will continue to follow. Please call with questions. Attestations Medical Necessity Statement*: Care expected to cross 2 midnights. Coding Level of Care Code Acute Code for [facility] Fwd Diagnoses Troponin level elevated R77.8 Type 1 diabetes E10.9 Hyperlipidemia E78.5 CKD (chronic kidney disease) N18.9
--- NOTE | 2023-02-23 07:16 | XACV_ITS ---
Exam Room: 2 Ht: 183 cm Wt: 77 kg BSA: 1.98 m2 Gender: Male : 1970 Any Known Allergies: No known allergies Exam Priority: Routine Procedure(s): Procedure Description: Diagnostic procedure Procedure Description: PCI procedure Procedure Description: Drug Eluting Coronary Stent Procedure Description: PTCA Procedure Description: Miscellaneous Procedure Description: ACT Procedure Description: Coronary Angiography Diagnostic Cath Status: Urgent Diagnostic Findings * INDICATION: NSTEMI/Abnormal stress test. * Left Main has no significant disease. * Circumflex has mild luminal irregularities. * Mid Right Coronary Artery to Distal Right Coronary Artery: subtotal occlusion, STORMY: 2 flow. Some collaterals seen from the left system. * Proximal Left Anterior Descending: mild 40% stenosis, STORMY: 3 flow. * 1st Diagonal: obstructive 70% stenosis, STORMY: 3 flow. * Coronary angiography shows right dominance. PCI Status: Urgent PCI Indication: NSTE - ACS Interventional Findings * PROCEDURE DETAIL: We engaged RCA with JR4 guide catheter. IV heparin was administered to maintain anticoagulation. A 0.014 run-through guidewire was used to cross the stenosis and was put in distal vessel. We predilated the stenosis with 2.5 x 12 mm semicompliant balloon. This was followed by placement of 3.5 x 34 mm resolute [place] drug-eluting stent from proximal to mid RCA. This was followed by high-pressure post dilation with 3.75 x 15 mm NC balloon. At this time final angiogram was performed that showed excellent stent expansion, no residual stenosis and STORMY-3 flow. Guidewire and guide catheter were removed. We then turned our attention to diagonal artery stenosis. We engaged left main artery with XB 3.5 guide catheter. Run-through guidewire was used to cross the diagonal artery stenosis. We predilated it with 2.5 x 12 mm semicompliant balloon. This was followed by placement of 2.25 x 15 mm resolute [place] drug-eluting stent. At this time final angiogram was performed that showed excellent stent expansion, STORMY-3 flow and no residual stenosis. Guidewire and guide catheter were removed. Patient left the Gyroscopic Instrument Tester in a stable condition.. * Mid Right Coronary Artery to Distal Right Coronary Artery: 99% stenosis treated with a AB TREK 2.50X12 RX BALLOON, MDT R LETTY 3.5X34 RACHNA, and MDT NC EUPHORA RX [id number] BALLOON. 0% residual stenosis, STORMY: 3 flow. * 1st Diagonal: 70% stenosis treated with a AB TREK 2.50X12 RX BALLOON, and MDT R LETTY 2.25X15 RACHNA. 0% residual stenosis, STORMY: 3 flow. Conclusions 1. Subtotal occlusion of mid RCA s/p successful revascularization with 1 stent. 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 2. Mid Right Coronary Artery to Distal Right Coronary Artery was treated with a Balloon, Drug Eluting Stent, and Balloon. 3. 1st Diagonal was treated with a Balloon, and Drug Eluting Stent. Recommendations * Dual antiplatelet therapy with aspirin and plavix for atleast 1 year. * High intensity statin therapy. * Outpatient cardiology follow up in 4 weeks. Interventional RX Recommendation: PCI w/o planned CABG Diagnostic RX Recommendation: PCI w/o planned CABG Anticoagulation: Heparin Pressures Phase:Rest AO : 97 / 57 ( 68 ) @ 9:20:00 AM 112 / 65 ( 78 ) @ 9:25:00 AM 107 / 63 ( 81 ) @ 9:41:00 AM 123 / 74 ( 93 ) @ 9:53:00 AM Clinical Evaluation EBL: 5mL-10mL Procedural Details Procedure Consent Obtained. Admit Source: In Patient. Pre-Procedure Time Out. Identified patient by full name and date of as verbalized by the patient/guarantor. Does the consent match the physician's order: Yes. Accurate & Complete Informed Consent: Yes. Inpatient/Outpatient History & Physical on Chart: Yes. If H&P is completed, is and addenduem needed: No; If yes, is the addendum complete: N/A. Visualize and Verify Site with Patient/Guarantor: N/A. Relevant Radiology Images available: Yes. The risks, benefits, and alternatives of sedation and/or procedure were discussed by physician. The patient agrees to continue. Procedure started. [facility] Clinical Fraility Score: 4: Vulnerable. Gyroscopic Instrument Tester Indications: ACS > 24 hours. Chest Pain Symptom Assessment: Atypical Angina. Correct patient, site and procedure confirmed by cath team. Current diagnosis: NSTEMI. PERRLA. Strong, equal hand rn mobile bilaterally. Lungs clear x 5 lobes. IV Site on Arrival: 18 gauge in the left anticubital. IV Fluids: 0.9% NaCl at 75ml/hr. 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 Pre Procedural Pulses: bilateral dorsalis pedis was 3+. Pre Procedural Pulses: bilateral posterior tibial was 1+. Pre Procedural Pulses: bilateral radial was 3+. Oxygen started at 2liters/min via nasal canula. right radial was prepped with chloroprep then draped in the usual sterile fashion. right groin was prepped with chloroprep then draped in the usual sterile fashion. Baseline sample Acquired. HR: 97 BPM. Physician notified. Physician arrived. Physician scrubbed in. Immediate Pre-Procedure Time Out. Correct Patient: Yes; Correct Procedure: Yes; Correct Site: Yes; Correct Patient Position: Yes; Correct Supplies: Yes; Dried Flammable Prep: Yes; Blood Products Available: No;. Lidocaine 1% infiltrated to the right radial. Arterial access obtained. A 5 indonesian TIG catheter in over wire. Multiple views taken of left coronary artery. Catheter redirected to the RCA. Multiple views taken of right coronary artery. Catheter removed over the exchange wire. PCI Indication: NSTE. 6 indonesian JR 4 guide catheter was inserted over the wire. ACT drawn. Results 185 seconds. Therapeutic limits - pre-heparin administration 90-150 seconds and monitoring heparin during a vascular procedure >250 seconds. Runthrough guidewire was advanced through the guide catheter to lesion in the mid RCA. Guidewire advanced across lesion. Inflation number : 1 A AB TREK 2.50X12 RX BALLOON was prepped and advanced across the Mid RCA , then inflated to 12 MILE for 0:13 seconds. Inflation number: 2 The AB TREK 2.50X12 RX BALLOON was reinflated across the Mid RCA, to 12 MILE for 0:15 seconds. Balloon out. Balloon inserted to lesion in the mid RCA. Stent inserted to lesion in the mid RCA. Inflation Number : 3 A MDT R LETTY 3.5X34 RACHNA -Lot Number# [id number] EXP 07-24-2024 was prepped and advanced across the Mid RCA. The stent was deployed at 12 MILE for 0:28 seconds. Stent balloon out over wire. Results checked. Balloon inserted to lesion in the mid RCA. Inflation number : 4 A MDT NC EUPHORA RX [id number] BALLOON was prepped and advanced across the Mid RCA , then inflated to 20 MILE for 0:20 seconds. Inflation number: 5 The MDT NC EUPHORA RX [id number] BALLOON was reinflated across the Mid RCA, to 20 MILE for 0:18 seconds. Balloon out. Results checked. ACT drawn. Results 289 seconds. Therapeutic limits - pre-heparin administration 90-150 seconds and monitoring heparin during a vascular procedure >250 seconds. Guide catheter out over exchange wire. 6 indonesian XB 3.5 SH guide catheter was inserted over the wire. Runthrough guidewire was advanced through the guide catheter to lesion in the diaganol. Guidewire advanced across lesion. Balloon inserted to lesion in the diaganol. Inflation number: 1 The AB TREK 2.50X12 RX BALLOON was reinflated across the 1st Diag, to 8 MILE for 0:17 seconds. Balloon out. Stent inserted to lesion in the diaganol. Inflation Number : 2 A MDT R LETTY 2.25X15 RACHNA -Lot Number# [id number] EXP 10-22-23_ was prepped and advanced across the 1st Diag. The stent was deployed at 12 MILE for 0:16 seconds. Stent balloon out over wire. Results checked. Runthrough wire out. Guide catheter out. A 5 indonesian TIG catheter in over wire. Multiple views taken of left coronary artery. ACT drawn. Results 246 seconds. Therapeutic limits - pre-heparin administration 90-150 seconds and monitoring heparin during a vascular procedure >250 seconds. Blood Glucose checked , results 358. Catheter removed over the exchange wire. Exchange wire out. Physician scrubbed out. A TR Band was successful obtaining hemostatsis at the Right Radial artery insertion site. Post Procedure: Pulses reassessed and unchanged. PERRLA. Strong, equal hand rn mobile bilaterally. No VTE prophylaxis required. Medication's Wasted: Lidocaine 1% = 2 mL. Medication's Wasted: Nitro = 49.6 mg. Medication's Wasted: Heparin = 2000 unit. Medication's Wasted: Other = Fentanyl 50mcg, Versed 1 mg. Total IV fluids: 135 mL. Post-op diagnosis: Critical mid RCA stenosis, status post PCI 1 stent placement. Severe diagonal stenosis, PCI placement of 1 stent. Complications: None. Estimated blood loss: 5mL-10mL. Responsiveness - Normal response to verbal stimuli; alert and oriented, PERRLA. Airway - Unaffected, no intervention required; spontaneous ventilation. Circulation: W/N/L, pulses unchanged. Nausea/Vomiting: No. Procedure completed. Patient transferred by wheelchair to 1st floor. Vital chart was stopped. Access Site Site: Right Radial artery Sheath Size: 6 Fr Hemostasis Method: TR Band Hemostasis Success: Successful Procedure Medications Start: 8:12 AM Stop: 8:12 AM Medication: Versed Amount: 1 mg Route: I.V. Start: 8:12 AM Stop: 8:12 AM Medication: Fentanyl Amount: 50 mcg Route: I.V. Start: 8:17 AM Stop: 8:17 AM Medication: Nitrogylcerin Amount: 200 mcg Route: I.A. Start: 8:19 AM Stop: 8:19 AM Medication: Heparin Amount: 2500 units Route: I.V. Start: 8:25 AM Stop: 8:25 AM Medication: Heparin Amount: 2500 units Route: I.V. Start: 8:31 AM Stop: 8:31 AM Medication: Heparin Amount: 2000 units Route: I.V. Start: 8:52 AM Stop: 8:52 AM Medication: Heparin Amount: 1000 units Route: I.V. Start: 8:53 AM Stop: 8:53 AM Medication: Nitrogylcerin Amount: 200 mcg Route: I.C. Start: 8:59 AM Stop: 8:59 AM Medication: Heparin Amount: 1000 units Route: I.V. Start: 8:59 AM Stop: 8:59 AM Medication: Plavix Amount: 300 mg Route: P.O. I, the attending physician, have reviewed and verified all procedure medications. Yes, all medications given per verbal order History/Risk Factors Hypertension: Yes Dyslipidemia: No Peripheral Arterial Disease (PAD): No Myocardial Infarction (NE): No Obesity: No Renal Disease: No Tobacco Use: Never Prior Interventions PCI: No CABG: No Valve Surgery: No Report Signatures Finalized by Bertrand Zamora MD on 02/23/2023 03:12 PM
[2023-02-23] MEDS: clopidogrel 75 mg Tablet PO (07:55)
[2023-02-23] MEDS: aspirin 81 mg EC Tablet PO (07:55)
[2023-02-23] MEDS: atorvastatin 40 mg Tablet 80 MG PO (07:55)
[2023-02-23] MEDS: insulin lispro 100 unit/1 mL SUBCUT ×3 (07:55→17:30)
--- NOTE | 2023-02-23 09:25 | W.PM.OPSUD ---
Surgery/Procedure H&P Update DATE OF PROCEDURE: February 23, 2023 DATE H&P PERFORMED: 02/21/23 H&P UPDATE INFORMATION: I have reviewed H&P completed within last 30 days, I have examined patient prior to procedure and Changes to prior documentation as noted here CHANGES TO PREVIOUS DOCUMENTATION: Patient had atypical symptoms and downtrending troponins. Stress test was performed that showed significant abnormalities in RCA territory and lateral wall ischemia. Plan for coronary angiogram with possible PCI PREOP DIAGNOSIS: NSTEMI/abnormal stress test PRIMARY INDICATION FOR PROCEDURE: NSTEMI/abnormal stress test PLANNED PROCEDURE: Operation Date: 02/23/23 08:00 Proposed Procedures p Cardiac Catheterization(Not Applicable) - Bertrand Zamora M.D Possible percutaneous coronary intervention PATIENT REASSESSED PRIOR TO SEDATION, WITH NO CHANGE NOTED: Yes PHYSICAL EXAM: alert, oriented x 3, clear to auscultation bilaterally and regular rate & rhythm AIRWAY EVAL/ANESTHESIA PLAN: normal airway, ASA III, Local Anesthesia, Risks, benefits & alternatives of sedation and/or procedure discussed and Patient agrees to continue as planned ADDITIONAL INFORMATION: Moderate sedation
--- NOTE | 2023-02-23 09:43 | PC.NURSE ---
Patient arrived via wheelchair. TR band intact, no hematoma or drainage noted. Patient alert and oriented. VS are WNL. Nurse will continue to monitor q15m.
[2023-02-23 10:01] LABS: Glucose Point of Care 358 mg/dL (70-110)
[2023-02-23] MEDS: insulin glargine 100 units/1 mL 20 UNIT SUBCUT ×2 (10:28→20:38)
--- NOTE | 2023-02-23 12:15 | PM.PN ---
Subjective Subjective: Status post stent, would like to watch 1 more day for contrast-induced nephropathy Stable hemodynamics No active chest pain Start Lantus 20 units no signs of DKA Vitals/I&O/Wt Last Vital Signs Temp 98.2 F 02/23/23 07:47 Pulse 95 02/23/23 10:30 Resp 15 02/23/23 10:30 BP 135/82 02/23/23 10:30 Pulse Ox 98 02/23/23 10:30 O2 Del Method Room Air 02/23/23 10:30 02/22/23 02/23/23 02/23/23 22:59 06:59 14:59 Intake Total 280.95 / 1232.083 200 / 1432.083 459.05 / 459.05 Output Total 700 / 700 2400 / 3100 Balance -419.05 / 532.083 -2200 / -1667.917 459.05 / 459.05 Weight last 48 hrs Weight 77.111 kg Physical Exam Narrative: S1, S2 Awake alert Doing well on room air Abdomen soft Awake and alert eomi perrla Data 02/23/23 05:30 02/23/23 05:30 A&P Assessment and plan (1) CKD (chronic kidney disease): (2) Troponin level elevated: (3) TIKI (acute kidney injury): (4) Non-ST elevation (NSTEMI) myocardial infarction: (5) CHF exacerbation: Plan Non-STEMI, status post stents Patient continues 48 hours of heparin Continue dual antiplatelet therapy Chronic kidney disease Creatinine stable Watch for any contrast-induced nephropathy Continue IV fluids. Type I diabetic Continue insulin Hyperglycemia without DKA. Discharge tomorrow Attestations Medical Necessity Statement*: nadia shannon Diagnoses CKD (chronic kidney disease) N18.9 Troponin level elevated R77.8 TIKI (acute kidney injury) N17.9 Non-ST elevation (NSTEMI) myocardial infarction I21.4 CHF exacerbation I50.9
--- NOTE | 2023-02-23 13:30 | PC.NURSE ---
TR band removed per protocol. No issues. No hematoma or oozing present. Dressing applied.
[2023-02-23 17:30] LABS: Glucose Point of Care 188 mg/dL (70-110)
[2023-02-23 17:30] LABS: Glucose Point of Care 328 mg/dL (70-110)
[2023-02-23] MEDS: sodium chloride 0.9% 1,000 ML 100 ML IV (19:00)
[2023-02-23 21:02] LABS: Glucose Point of Care 277 mg/dL (70-110)
[2023-02-24] VITALS: BP 140/72; PULSE 102; RESP 14; TEMP 36.6; O2SAT 96
[2023-02-24 04:00] VITALS: BP 155/88; PULSE 95; RESP 29; TEMP 36.6; O2SAT 99
[2023-02-24 05:19] LABS: Blood Urea Nitrogen 23 mg/dL (6-20); Calcium 8.3 mg/dL (8.5-10.5); Carbon Dioxide 22 mmol/L (22-29); Chloride 105 mmol/L (98-107); Glomerular Filtration Rate 63.8 mL/min (90-130); Glucose 206 mg/dL (65-115); Osmolality Calculated 292 mOsm/kg (285-295); Sodium 136 mmol/L (136-145)
[2023-02-24 05:23] LABS: Anion Gap 13.4 (5-19); Potassium 4.4 mmol/L (3.5-5.1)
[2023-02-24 06:00] VITALS: PULSE 94
[2023-02-24 06:24] LABS: Glucose Point of Care 221 mg/dL (70-110)
--- NOTE | 2023-02-24 08:04 | PM.DCS ---
Discharge Providers Date of Admission: 02/21/23 16:16 Date of Discharge: February 24, 2023 Attending Provider at Admission: Ammon Billingsley MD Attending Provider at Discharge: Ammon Billingsley MD Primary Care Provider: Jhonatan Malloy DO Diagnoses at Discharge Discharge Diagnosis (1) CKD (chronic kidney disease): Status: Acute (2) Troponin level elevated: Status: Acute (3) TIKI (acute kidney injury): Status: Acute (4) Non-ST elevation (NSTEMI) myocardial infarction: Status: Acute (5) CHF exacerbation: Status: Acute Reason for Visit Reason for Visit: weakness sent from [place] Hospital Course Hospital Course 52-year-old male who was admitted for management evaluation of non-STEMI, patient did not experience any chest pain he was experiencing diaphoresis, shortness of breath, he had 1 episode of hypoglycemia on admission, he was sent from the [place] clinic, Dr. Contreras was consulted who recommended for stress test first, which was positive, patient went for coronary angiogram 02/23, right radial access, status post PCI, kindly refer to cardiac cath report, No postoperative complication, creatinine is normal, patient was hydrated with normal saline, patient has EF of 40% anticipating improvement with PCI, follow-up with cardiology within 2 weeks, Patient gets medications through [place] pharmacy there might be a delay in getting aspirin and Plavix I will give him aspirin and Plavix through our [facility], on Saturday our pharmacy is closed I do want him to miss any dual antiplatelet therapy in a single day Continue worsening of A1c level I have asked him to increase his Lantus to 25 units instead of 20 Physical Exam Narrative: Awake and alert GCS 15 Pleasant cooperative Doing well on room air Hemodynamically stable Discharge Data Studies Completed and Pending Completed Studies During Hospitalization Category Date Time Status 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 echo complete* [id number] Routine Ultrasound 02/21/23 18:02 Completed Pending at discharge Category Date Time Status Platelet Count Q2D Lab 02/25/23 04:00 Ordered Radiology Impressions Chest X-Ray 02/21/23 15:03 IMPRESSION: No acute findings. Laboratory Results WBC 5.07 10^3/uL (3.29-11.43) 02/23/23 05:30 RBC 3.48 10^6/uL (3.85-5.65) L 02/23/23 05:30 Hgb 9.90 g/dL (11.27-16.99) L 02/23/23 05:30 Hct 28.8 % (37-53) L 02/23/23 05:30 MCV 82.8 fl (82-101) 02/23/23 05:30 MCH 28.4 pg (27-33) 02/23/23 05:30 MCHC 34.4 g/dL (30-55) 02/23/23 05:30 RDW 12.6 % (12.1-15.1) 02/23/23 05:30 Plt Count 265 10^3/cmm (157-399) 02/23/23 05:30 MPV 7.9 fL (7.4-10.4) 02/23/23 05:30 Neut % (Auto) 58.8 % 02/23/23 05:30 Lymph % (Auto) 27.0 % 02/23/23 05:30 [place] % (Auto) 8.3 % 02/23/23 05:30 Eos % (Auto) 3.7 % 02/23/23 05:30 Baso % (Auto) 1.6 % 02/23/23 05:30 Neut # (Auto) 2.98 10^3/uL (1.8-7.7) 02/23/23 05:30 Lymph # (Auto) 1.4 10^3/uL (0.8-4.8) 02/23/23 05:30 [place] # (Auto) 0.4 10^3/uL (0.2-0.9) 02/23/23 05:30 Eos # (Auto) 0.2 10^3/uL (0.0-0.8) 02/23/23 05:30 Baso # (Auto) 0.1 10^3/uL (0.0-0.1) 02/23/23 05:30 Nucleated RBC % (auto) 0 % 02/23/23 05:30 Nucleated RBCs # 0.0 /100WBC 02/23/23 05:30 APTT 55.1 SECONDS (23.9-36.7) H 02/23/23 05:30 D-Dimer 0.80 ug/mLFEU (0-0.59) H 02/21/23 15:17 Sodium 136 mmol/L (136-145) 02/24/23 03:23 Potassium 4.4 mmol/L (3.5-5.1) 02/24/23 03:23 Chloride 105 mmol/L (98-107) 02/24/23 03:23 Carbon Dioxide 22 mmol/L (22-29) 02/24/23 03:23 Anion Gap 13.4 (5-19) 02/24/23 03:23 BUN 23 mg/dL (6-20) H 02/24/23 03:23 Creatinine 1.2 mg/dL (0.7-1.2) 02/24/23 03:23 GFR Calculation 63.8 mL/min (90-130) L 02/24/23 03:23 Glucose 206 mg/dL (65-115) H 02/24/23 03:23 POC Glucose 221 mg/dL (70-110) H 02/24/23 06:16 Estimat Average Glucose 364 02/21/23 15:17 Hemoglobin A1c 14.3 % (4.0-6.0) H 02/21/23 15:17 Calculated Osmolality 292 mOsm/kg (285-295) 02/24/23 03:23 Calcium 8.3 mg/dL (8.5-10.5) L 02/24/23 03:23 Magnesium 2.1 mg/dL (1.7-2.3) 02/22/23 05:29 Total Bilirubin 0.2 mg/dL (0.15-1.2) 02/21/23 15:17 AST 11 U/L (0-40) 02/21/23 15:17 ALT 13 U/L (0-41) 02/21/23 15:17 Alkaline Phosphatase 153 U/L (40-130) H 02/21/23 15:17 Troponin T Baseline 152 ng/L (0-15) H* 02/21/23 15:17 Troponin T 120 Minute 117.9 ng/L (0-15) H 02/21/23 17:04 Delta Troponin T -34.1 ABS# (0-10) L 02/21/23 17:04 Troponin T Hi Sens 6Hr 101.8 ng/L (0-15) H 02/21/23 21:24 Troponin T Hi Sens 6Hr Delta -50.2 ng/L (0-12) L 02/21/23 21:24 C-Reactive Protein 3.2 mg/L (0.0-4.9) 02/22/23 05:29 Total Protein 5.8 g/dL (6.6-8.7) L 02/21/23 15:17 Albumin 3.5 g/dL (3.5-5.2) 02/21/23 15:17 Globulin 2.3 g/dL (1.3-4.6) 02/21/23 15:17 Vitamin B12 424 pg/mL (232-1245) 02/21/23 17:04 TSH 2.74 uIU/mL (0.27-4.20) 02/21/23 17:04 Urine Color Straw (Yellow) 02/21/23 15:48 Urine Appearance Clear (CLEAR) 02/21/23 15:48 Urine pH 5 (5-7) 02/21/23 15:48 Ur Specific [place] 1.010 (1.005-1.030) 02/21/23 15:48 Urine Protein 2+ (Negative) H 02/21/23 15:48 Urine Glucose (UA) 4+ (Normal) H 02/21/23 15:48 Urine Ketones Negative (Negative) 02/21/23 15:48 Urine Blood 3+ (Negative) H 02/21/23 15:48 Urine Nitrate Negative (Negative) 02/21/23 15:48 Urine Bilirubin Neg (Negative) 02/21/23 15:48 Urine Urobilinogen Norm mg/dL (Negative) 02/21/23 15:48 Ur Leukocyte Esterase Negative (Negative) 02/21/23 15:48 Urine RBC 5-10 /hpf (0-2) H 02/21/23 15:48 Urine WBC 0-4 /hpf (0-5) H 02/21/23 15:48 Ur Squamous Epith Cells 0-4 /hpf (0-5) H 02/21/23 15:48 Amorphous Sediment Not Reportable 02/21/23 15:48 Urine Bacteria Trace /hpf (NONE) 02/21/23 15:48 Vitals Last Vital Signs Temp 97.8 F 02/24/23 04:00 Pulse 94 02/24/23 06:00 Resp 29 H 02/24/23 04:00 BP 155/88 02/24/23 04:00 Pulse Ox 99 02/24/23 04:00 O2 Del Method Room Air 02/24/23 04:00 Discharge Plan Discharge Patient Disposition: Home Condition: Stable Prescriptions: New clopidogrel 75 mg Tablet 75 mg PO DAILY Qty: 90 3RF aspirin 81 mg tablet,delayed release (DR/EC) 81 mg PO DAILY Qty: 20 0RF aspirin 81 mg Tablet,Delayed Release (Dr/Ec) 81 mg PO DAILY Qty: 90 3RF atorvastatin 40 mg Tablet 40 mg PO DAILY Qty: 90 3RF clopidogrel [Plavix] 75 mg tablet 75 mg PO DAILY Qty: 20 0RF Continued cholecalciferol (vitamin D3) 50 mcg (2,000 unit) capsule 50 mcg PO DAILY (DME) insulin syringe-needle U-100 [BD Insulin Syringe Ultra-Fine] 1 mL 31 gauge x 5/16 syringe See Rx Instructions .Route Rx Instructions: As directed (DME) lancets [Accu-Chek Softclix Lancets] Misc See Rx Instructions .Route Rx Instructions: As directed (DME) blood-glucose meter [Accu-Chek Guide Glucose Meter] Misc See Rx Instructions .Route Rx Instructions: As directed insulin glargine 100 unit/mL solution 20 unit SUBCUT DAILY (DME) Dexcom G6 Senior Marketing Analyst Misc See Rx Instructions .ROUTE .MEDSUPPLY Qty: 1 0RF Rx Instructions: As directed (DME) Dexcom G6 Sensor Device See Rx Instructions .MEDSUPPLY Qty: 9 3RF Rx Instructions: As directed (DME) Dexcom G6 Transmitter Device See Rx Instructions .MEDSUPPLY Qty: 3 3RF Rx Instructions: As directed Changed insulin aspart U-100 100 unit/mL cartridge 25 unit SUBCUT TID Qty: 15 3RF Discharge Orders: Discharge Order (Routine); Ordered 02/24/23 Ordered By: Ammon Billingsley Referrals: Jhonatan Malloy DO [Primary Care Provider] - Negra Harris FNP [Nurse Practitioner] - 2 weeks Discharge Diet: Cardiac Patient Instructions: Coronary Angioplasty (DC), Opioid Safety, Post Angiogram Home Care Instructions, Post Heart Attack Stoplight Discharge Attestations Time Spent in Discharge Care*: greater than 30 min Quality Metrics Clinical Quality Measures [ No reported AMI, CVA or VTE this stay] Coding Level of Care Code Acute Code for Chg Fwd Diagnoses CKD (chronic kidney disease) N18.9 Troponin level elevated R77.8 TIKI (acute kidney injury) N17.9 Non-ST elevation (NSTEMI) myocardial infarction I21.4 CHF exacerbation I50.9
[2023-02-24] MEDS: sennosides-docusate Tablet 1 TAB PO (08:08)
[2023-02-24] MEDS: clopidogrel 75 mg Tablet PO (08:08)
[2023-02-24] MEDS: atorvastatin 40 mg Tablet 80 MG PO (08:09)
[2023-02-24] MEDS: aspirin 81 mg EC Tablet PO (08:09)
[2023-02-24] MEDS: insulin lispro 100 unit/1 mL SUBCUT (08:09)
[2023-02-24] MEDS: FUROsemide 20 mg Tablet PO (08:09)
[2023-02-24 09:24] VITALS: PULSE 94
--- NOTE | 2023-02-24 10:00 | PC.NURSE ---
Discharge Note Patient discharged to [home] via [w/c to POV] accompanied by [ and family]. Discharge instructions reviewed with patient and/or branch service representative. Mobile pharmacy medications and/or prescriptions provided. Belongings/home medications returned.
--- NOTE | 2023-02-24 10:10 | PM.PN ---
Subjective Subjective: Patient is doing well. no chest pain. Vitals/I&O/Wt Last Vital Signs Temp 97.8 F 02/24/23 04:00 Pulse 94 02/24/23 09:24 Resp 29 H 02/24/23 04:00 BP 155/88 02/24/23 04:00 Pulse Ox 99 02/24/23 04:00 O2 Del Method Room Air 02/24/23 08:00 02/23/23 02/24/23 02/24/23 22:59 06:59 14:59 Intake Total 2240 / 2939.05 1700 / 4639.05 360 / 360 Output Total 180 / 660 1100 / 1760 Balance 2060 / 2279.05 600 / 2879.05 360 / 360 Physical Exam Narrative: GENERAL: Patient is alert, awake and oriented x3. [] NECK: No jugular vein distension. [] HEENT: No cyanosis. No icterus. No pallor. [] HEART: Regular S1 and S2. No murmur, rub or gallop. [] LUNGS: Clear to auscultate bilaterally. [] CENTRAL NERVOUS SYSTEM: Grossly nonfocal. [] EXTREMITIES: Lower extremities with 1+ edema bilaterally. Data 02/23/23 05:30 02/24/23 03:23 A&P Assessment and plan (1) Troponin level elevated: (2) Type 1 diabetes: (3) Hyperlipidemia: (4) CKD (chronic kidney disease): Plan Patient is doing well. No chest pain. Continue dual antiplatelet therapy. Thank you for involving us with care of this patient. He is stable to be discharged from cardiac standpoint. Please call with questions. Attestations Medical Necessity Statement*: Care expected to cross 2 midnights. Coding Level of Care Code Acute Code for g Fwd Diagnoses Troponin level elevated R77.8 Type 1 diabetes E10.9 Hyperlipidemia E78.5 CKD (chronic kidney disease) N18.9
== END 2023-02-24 09:55 | disposition home or self-care (01) | DRG 247 ==
LOC: ER 15:03 → CSU 16:51
PROVIDERS: Internal Medicine; Admitting Provider Internal Medicine; Emergency Provider Physician Assistant; PCP Emergency Medicine Emergency Medical Services; Visit Provider Internal Medicine
PROC: 027236Z Dilation of Coronary Artery, Three Arteries with Three Drug-eluting Intraluminal Devices, Percutaneous Approach (ICD-10-PCS; principal; 2023-02-23 08:00)
PROC: 027236Z Dilation of Coronary Artery, Three Arteries with Three Drug-eluting Intraluminal Devices, Percutaneous Approach (ICD-10-PCS; 2023-02-23 08:00)
DX: I21.4 Non-ST elevation (NSTEMI) myocardial infarction (principal); N17.9 Acute kidney failure, unspecified; E10.649 Type 1 diabetes mellitus with hypoglycemia without coma; E10.22 Type 1 diabetes mellitus with diabetic chronic kidney disease; I12.9 Hypertensive chronic kidney disease with stage 1 through stage 4 chronic kidney disease, or unspecified chronic kidney disease; N18.9 Chronic kidney disease, unspecified; N52.9 Male erectile dysfunction, unspecified
CPT/HCPCS: 36415; 36416; 71045; 78452; 80048; 80053; 81001; 81015; 82607; 82962; 83036; 83735; 84443; 84484; 85025; 85347; 85378; 85730; 86140; 93005; 93306; 93454; 96365; 96372; 96374; 96375; 99152; 99153; 99285; A9500; C1725; C1769; C1874; C1887; C1894; C9600; C9601; J0461; J1644; J1815; J2250; J2785; J3010; J3490; J7030; Q0163; Q9967

== ENCOUNTER 2023-03-07 09:36 | Inpatient (IN) | payer OTHER, SELFPAY ==
[2023-03-07] VITALS (9 sets, daily range): BP systolic 116–138; BP diastolic 70–80; PULSE 89–109; RESP 16–19; TEMP 36.7–37.1; O2SAT 91–98
--- NOTE | 2023-03-07 09:54 | ECG_ITS ---
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 Measurements Intervals [place] Rate: 110 P: 42 FL: 150 QRS: 63 QRSD: 110 T: 5 QT: 351 QTc: 475 Interpretive Statements SINUS TACHYCARDIA MINIMAL ST DEPRESSION [0.025+ mV ST DEPRESSION] ABNORMAL RHYTHM ECG Compared to ECG 02/21/2023 17:12:07 ST (T wave) deviation now present Sinus rhythm no longer present Myocardial infarct finding no longer present T-wave abnormality no longer present Possible ischemia no longer present Electronically Signed On 03-07-2023 15:55:47 CDT by Lucio Garcia M.D. [id number]
--- NOTE | 2023-03-07 09:56 | XR_ITS ---
WS: [id number] EXAMINATION: XR chest 1V portable [id number] REASON FOR EXAM: dyspnea/cough COMPARISON: 02/21/2023 ORDER DATE: 03/07/2023 10:03 AM TECHNIQUE: A single, portable frontal chest x-ray was obtained. X-RAY FINDINGS: There is been the interval development of bilateral nodular interstitial alveolar inf iltrates with peripheral predominance. Pleural spaces are clear. No pleural effusions or pneumothorax. Cardiomediastinal silhouette is normal. No evidence for pulmonary edema. Soft tissue and osseous structures are unremarkable. No tubes or lines are present. IMPRESSION: Bilateral infiltrates COVID type distribution but could represent any atypical viral or other pneumon ic infectious process
--- NOTE | 2023-03-07 10:00 | ED_ITS ---
HPI - SOB/Dyspnea General: Chief Complaint: Shortness of Breath/Dyspnea Stated Complaint: SOB/chest pain Time Seen by Provider: 03/07/23 09:41 Source: patient Mode of arrival: ambulatory History of Present Illness: HPI Narrative: 52-year-old male presents to the emergency room with complaint of fever non productive cough for the last week myalgias. He rates his temp at home has been up to 102. He has not had a productive cough no vomiting no diarrhea no anosmia. He has a history of coronary disease type 2 diabetes mellitus and congestive heart failure he has not noticed any orthopnea or increased swelling in his legs. He went to see cardiology today because of his acute illness they directed him to the emergency room for further evaluation MD elicited complaint: shortness of breath and cough Pertinent past history: congestive heart failure Onset (ago): week(s) (1) Context: recent illness Timing: constant Severity: moderate Exacerbating factors: coughing Relieving factors: nothing Known history of: congestive heart failure Associated symptoms: Reports chest congestion, cough and fever(s); Deny abdominal pain, chest pain, diaphoresis, dizziness, extremity pain, hemoptysis, lightheadedness, myalgias, nausea, orthopnea, palpitations, paresthesias, polydipsia, polyuria, rash, sense of impending doom, syncope or vomiting Treatment prior to arrival: none Related Data: Home oxygen amount: none Review of Systems Const: Reports: fever(s), chills, body aches, change in appetite, fatigue and malaise; Denies: diaphoresis ENMT: Denies: throat pain, ear or mastoid pain, nasal discharge or nasal congestion Card: Denies: chest pain, palpitations, lightheadedness, syncope or orthopnea Resp: Reports: chest congestion; Denies: hemoptysis GI: Denies: abdominal pain, nausea or vomiting : Denies: flank pain, dysuria, urinary frequency or urinary urgency Musc: Denies: extremity pain Skin/Breast: Denies: rash or pruritus Neuro: Denies: dizziness Endo: Denies: polyuria or polydipsia PFS ED PFSH: Medical History TIKI (acute kidney injury) CHF exacerbation CKD (chronic kidney disease) Coronary artery disease Erectile dysfunction Hyperlipidemia Hypertension Non-ST elevation (NSTEMI) myocardial infarction Troponin level elevated Type 1 diabetes Surgical History History of inguinal hernia repair History of thumb surgery Social History (Updated 03/07/23 @ 11:51 by Juan M Mccormick MD) Smoking and tobacco status: never smoked Alcohol intake: never Physical Exam Const: GENERAL APPEARANCE: cooperative and comfortable ORIENTATION/CONSCIOUSNESS: Yes awake, Yes oriented to person, Yes oriented to place and Yes oriented to time HENMT: COMMON NORMALS: normocephalic, atraumatic and hearing grossly normal bilaterally HEAD & SCALP: normocephalic and atraumatic Resp: COMMON NORMALS: normal respiratory effort, No retractions, No use of accessory muscles and clear to auscultation bilaterally AUSCULTATION: clear to auscultation bilaterally Cardio: COMMON NORMALS: regular rate, regular rhythm and No murmurs present (Cardio) RATE: regular rate RHYTHM: regular rhythm GI: COMMON NORMALS: Soft to palpation and No hepatosplenomegaly present AU SCULTATION: Yes normoactive bowel sounds PALPATION: Yes Soft to palpation, No Tenderness to palpation present (GI), No Guarding due to palpation present (GI) and Yes No hepatosplenomegaly present Extremity: COMMON NORMALS: normal to inspection, capillary refill normal, no clubbing, cyanosis or edema, no calf tenderness and no pedal edema Neuro: SENSORIUM/ORIENTATION: Yes oriented to person, Yes oriented to place and Yes oriented to time Skin: COMMON NORMALS: no rashes or lesions noted GENERAL SKIN EXAM: no rashes or lesions noted Course Vital Signs: Vital signs: Vital Signs Temperature 98.7 F 03/07/23 09:46 Pulse Rate 107 H 03/07/23 11:09 Respiratory Rate 18 03/07/23 11:09 Blood Pressure 138/80 03/07/23 11:09 Pulse Oximetry 96 03/07/23 11:09 Oxygen Delivery Me thod Room Air 03/07/23 11:09 MDM - SOB/Dyspnea Medical Decision Making COVID pneumonitis with positive PCR. He also has acute renal injury and transaminitis. Giving IV fluids discussed Dr. Mccormick orders written for admission Medical Records I reviewed the patient's medical records. Lab Data I reviewed the patient's lab results. 03/07/23 10:15 03/07/23 10:15 Labs/Radiology: Laboratory Results WBC 5.98 10^3/uL (3.29-11.43) 03/07/23 10:15 RBC 2.87 10^6/uL (3.85-5.65) L 03/07/23 10:15 Hgb 8.20 g/dL (11.27-16.99) L 03/07/23 10:15 Hct 24.4 % (37-53) L 03/07/23 10:15 MCV 85.0 fl (82-101) 03/07/23 10:15 MCH 28.6 pg (27-33) 03/07/23 10:15 MCHC 33.6 g/dL (30-55) 03/07/23 10:15 RDW 12.6 % (12.1-15.1) 03/07/23 10:15 Plt Count 220 10^3/cmm (157-399) 03/07/23 10:15 MPV 8.6 fL (7.4-10.4) 03/07/23 10:15 Neut % (Auto) 80.8 % 03/07/23 10:15 Lymph % (Auto) 10.7 % 03/07/23 10:15 Greer % (Auto) 6.5 % 03/07/23 10:15 Eos % (Auto) 0.2 % 03/07/23 10:15 Baso % (Auto) 0.3 % 03/07/23 10:15 Neut # (Auto) 4.83 10^3/uL (1.8-7.7) 03/07/23 10:15 Lymph # (Auto) 0.6 10^3/uL (0.8-4.8) L 03/07/23 10:15 Greer # (Auto) 0.4 10^3/uL (0.2-0.9) 03/07/23 10:15 Eos # (Auto) 0.0 10^3/uL (0.0-0.8) 03/07/23 10:15 Baso # (Auto) 0.0 10^3/uL (0.0-0.1) 03/07/23 10:15 Nucleated RBC % (auto) 0 % 03/07/23 10:15 Nucleated RBCs # 0.0 /100WBC 03/07/23 10:15 D-Dimer 2.90 ug/mLFEU (0-0.59) H 03/07/23 10:15 Sodium 126 mmol/L (136-145) L 03/07/23 10:15 Potassium 5.5 mmol/L (3.5-5.1) H 03/07/23 10:15 Chloride 94 mmol/L (98-107) L 03/07/23 10:15 Carbon Dioxide 19 mmol/L (22-29) L 03/07/23 10:15 Anion Gap 18.5 (5-19) 03/07/23 10:15 BUN 47 mg/dL (6-20) H 03/07/23 10:15 Creatinine 2.5 mg/dL (0.7-1.2) H 03/07/23 10:15 GFR Calculation 27.4 mL/min (90-130) L 03/07/23 10:15 Glucose 448 mg/dL (65-115) H 03/07/23 10:15 Calculated Osmolality 294 mOsm/kg (285-295) 03/07/23 10:15 Calcium 8.0 mg/dL (8.5-10.5) L 03/07/23 10:15 Iron 15 ug/dL (59-158) L 03/07/23 10:15 TIBC 161 mcg/dl 03/07/23 10:15 % Saturation 9.3 % (20-50) L 03/07/23 10:15 Unsat Iron Binding 146 ug/dL (112-347) 03/07/23 10:15 Total Bilirubin 0.4 mg/dL (0.15-1.2) 03/07/23 10:15 AST 32 U/L (0-40) 03/07/23 10:15 ALT 241 U/L (0-41) H 03/07/23 10:15 Alkaline Phosphatase 210 U/L (40-130) H 03/07/23 10:15 Total Protein 6.4 g/dL (6.6-8.7) L 03/07/23 10:15 Albumin 2.9 g/dL (3.5-5.2) L 03/07/23 10:15 Globulin 3.5 g/dL (1.3-4.6) 03/07/23 10:15 Procalcitonin 0.97 ng/mL (0-0.5) H 03/07/23 10:15 Serum Ketones Negative (Negative) 03/07/23 10:15 Coronavirus 229E (PCR) Not detected (NOT DETECT) 03/07/23 10:19 Influenza Type A Ag negative (Negative) 03/07/23 10:19 Influenza Type B Ag negative (Negative) 03/07/23 10:19 SARS-CoV-2 (PCR) Detected (NOT DETECT) A 03/07/23 10:19 All radiology interpretation(s) finalized by discharge Discharge Plan Discharge Patient Disposition: Admitted As Inpatient Clinical Impression: Pneumonia due to 2019-nCoV, Acute kidney injury, Transaminitis Condition: Stable Prescriptions: No Action cholecalciferol (vitamin D3) 50 mcg (2,000 unit) capsule 50 mcg PO DAILY (DME) insulin syringe-needle U-100 [BD Insulin Syringe Ultra-Fine] 1 mL 31 gauge x 5/16 syringe See Rx Instructions .Route Rx Instructions: As directed (DME) lancets [Accu-Chek Softclix Lancets] Misc See Rx Instructions .Route Rx Instructions: As directed (DME) blood-glucose meter [Accu-Chek Guide Glucose Meter] Misc See Rx Instructions .Route Rx Instructions: As directed (DME) Dexcom G6 Group Sales Manager Misc See Rx Instructions .ROUTE .MEDSUPPLY Qty: 1 0RF Rx Instructions: As directed (DME) Dexcom G6 Sensor Device See Rx Instructions .MEDSUPPLY Qty: 9 3RF Rx Instructions: As directed (DME) Dexcom G6 Transmitter Device See Rx Instructions .MEDSUPPLY Qty: 3 3RF Rx Instructions: As directed atorvastatin 40 mg Tablet 40 mg PO DAILY Qty: 90 3RF insulin aspart U-100 100 unit/mL cartridge 25 unit SUBCUT TID Qty: 15 3RF aspirin 81 mg tablet,delayed release (DR/EC) 81 mg PO DAILY Qty: 20 0RF clopidogrel [Plavix] 75 mg tablet 75 mg PO DAILY Qty: 20 0RF lisinopril 5 mg tablet 5 mg PO DAILY Qty: 60 0RF metoprolol succinate [Toprol XL] 25 mg tablet extended release 24 hr 12.5 mg PO DAILY Qty: 90 0RF Referrals: Jhonatan Malloy DO [Primary Care Provider] - Coding Level of Care Code ED Water Commissioner for g Fwyevgeniy
[2023-03-07 10:23] LABS: Basophils % 0.3 %; Eosinophils % 0.2 %; Hematocrit 24.4 % (37-53); Lymphocytes # 0.6 10^3/uL (0.8-4.8); Lymphocytes % 10.7 %; Mean Corpuscular HGB Conc 33.6 g/dL (30-55); Mean Corpuscular Hemoglobin 28.6 pg (27-33); Mean Platelet Volume 8.6 fL (7.4-10.4); Monocytes # 0.4 10^3/uL (0.2-0.9); Monocytes % 6.5 %; Neutrophils # 4.83 10^3/uL (1.8-7.7); Neutrophils % 80.8 %; Nucleated Red Blood Cells % 0 %; Platelet Count 220 10^3/cmm (157-399); Red Blood Count 2.87 10^6/uL (3.85-5.65); Red Cell Distribution Width 12.6 % (12.1-15.1); White Blood Count 5.98 10^3/uL (3.29-11.43)
[2023-03-07 10:43] LABS: Alanine Aminotransferase 241 U/L (0-41); Albumin Level 2.9 g/dL (3.5-5.2); Alkaline Phosphatase 210 U/L (40-130); Anion Gap 18.5 (5-19); Aspartate Amino Transferase 32 U/L (0-40); Blood Urea Nitrogen 47 mg/dL (6-20); Carbon Dioxide 19 mmol/L (22-29); Chloride 94 mmol/L (98-107); Globulin 3.5 g/dL (1.3-4.6); Glomerular Filtration Rate 27.4 mL/min (90-130); Glucose 448 mg/dL (65-115); Osmolality Calculated 294 mOsm/kg (285-295); Potassium 5.5 mmol/L (3.5-5.1); Sodium 126 mmol/L (136-145); Total Bilirubin 0.4 mg/dL (0.15-1.2); Total Protein 6.4 g/dL (6.6-8.7)
[2023-03-07] MEDS: sodium chloride 0.9% 1,000 ML 999 ML IV (10:51)
--- NOTE | 2023-03-07 10:51 | PC.NURSE ---
PT DENIES CP CANCELED ASPIRIN ORDER
[2023-03-07 10:53] LABS: Influenza A by IFA negative (Negative); Influenza B by IFA negative (Negative)
--- NOTE | 2023-03-07 11:45 | USCV_ITS ---
Trang Teran Age: 52 Gender: M : 1970 Exam Date: 03/07/2023 11:58 Ordering Phys: Juan M Mccormick MD Technologist: Jose Maria Lauren Exam Location: [email or web address]_ Indication: positve d dimer PROCEDURES: Bilaterally, the common femoral, superficial femoral, profunda femoral, popliteal, posterior tibial, greater saphenous veins, and the peroneal trunk were identified and interrogated in the standard fashion. These veins were found to be easily compressible with spontaneous blood flow. No evidence of insufficiency or thrombus noted. FINDINGS: Normal 2-D Doppler and augmentation and compressibility throughout the lower extremity venous structures. Additional imaging through the proximal calf veins also reveals no thrombus. Limited evaluation of the greater saphenous vein is patent with no thrombus. CONCLUSIONS No evidence of right lower extremity DVT. No evidence of left lower extremity DVT. Ramiro Fenton MD (Electronically Signed) Final Date: 07 March 2023 13:30 S
--- NOTE | 2023-03-07 11:45 | PM.HP ---
Providers/Chief Complaint Admitting Physician: Juan M Mccormick MD Primary Care Provider: Jhonatan Malloy DO Chief Complaint: SOB History of Present Illness Trang Teran is a 52 year old male with fever chills muscle aches and shortness of breath. He denies any orthopnea, or chest pain. I questioned him extensively and no chest discomfort and with inhalation. No ill contacts. Denies any vomiting or diarrhea. Fevers as high as 102 ?F. He was recently in the hospital with angiogram and drug-eluting stent placement RCA and first diagonal on February 23. He was noted to be anemic prior to this procedure. He denies any black or tarry stools, blood in stools, nosebleeds. He reports no severe heartburn. He denies any prior knowledge of anemia. He has been diabetic since he was 31 years of age and was told he has type 1 diabetes although he has never had an episode of DKA. With his myalgias he is mainly hurting his lower legs. Current physician has given him dexamethasone, and aspirin, IV fluids. Review of Systems General: Reports: 10 or more systems reviewed and unremarkable except in HPI and below Card: Denies: chest pain Resp: Reports: dyspnea and non-productive cough; Denies: productive cough or hemoptysis GI: Denies: abdominal pain, nausea, vomiting, hematochezia or melena Medications/Allergies Home Medications Medication Instructions Recorded Confirmed Last Taken Type blood-glucose meter (Accu-Chek 12/27/21 03/07/23 Unknown History Guide Glucose Meter) blood-glucose meter,continuous #1 ea 12/27/21 03/07/23 Unknown Rx (Dexcom G6 Manager Fine Dining) blood-glucose sensor (Dexcom G6 #9 ea 12/27/21 03/07/23 Unknown Rx Sensor device) blood-glucose transmitter (Dexcom #3 ea 12/27/21 03/07/23 Unknown Rx G6 Transmitter device) cholecalciferol (vitamin D3) 50 50 mcg PO DAILY 12/27/21 03/07/23 03/06/23 History mcg (2,000 unit) capsule insulin syringe-needle U-100 1 mL 12/27/21 03/07/23 Unknown History 31 gauge x 5/16 (BD Insulin Syringe Ultra-Fine) lancets (Accu-Chek Softclix 12/27/21 03/07/23 Unknown History Lancets) aspirin 81 mg tablet,delayed 81 mg PO DAILY #20 tabs 02/24/23 03/07/23 03/06/23 Rx release atorvastatin 40 mg tablet 40 mg PO DAILY #90 tabs 02/24/23 03/07/23 03/06/23 Rx clopidogrel 75 mg tablet (Plavix) 75 mg PO DAILY #20 tabs 02/24/23 03/07/23 03/06/23 Rx insulin aspart U-100 100 unit/mL 25 unit (0.25 mL) SUBCUT TID #15 mL 02/24/23 03/07/23 03/06/23 Rx subcutaneous cartridge lisinopril 5 mg tablet 5 mg PO DAILY #60 tabs 02/24/23 03/07/23 03/06/23 Rx metoprolol succinate 25 mg 12.5 mg PO DAILY #90 tabs 02/24/23 03/07/23 03/06/23 Rx tablet,extended release 24 hr (Toprol XL) Allergies Allergy/AdvReac Type Severity Reaction Status Date / Time No Known Allergies Allergy Verified 03/07/23 09:54 PFSH Acute PFSH: Medical History (Updated 03/07/23 @ 12:47 by Juan M Mccormick MD) TIKI (acute kidney injury) CHF exacerbation CKD (chronic kidney disease) Coronary artery disease Erectile dysfunction Hyperlipidemia Hypertension Non-ST elevation (NSTEMI) myocardial infarction Troponin level elevated Type 1 diabetes Surgical History History of inguinal hernia repair History of thumb surgery Social History (Updated 03/07/23 @ 11:51 by Juan M Mccormick MD) Smoking and tobacco status: never smoked Alcohol intake: never Vitals/I&O/Wt Last Vital Signs Temp 98.7 F 03/07/23 09:46 Pulse 107 H 03/07/23 11:09 Resp 18 03/07/23 11:09 BP 138/80 03/07/23 11:09 Pulse Ox 96 03/07/23 11:09 O2 Del Method Room Air 03/07/23 11:09 Weight last 48 hrs Weight 77.111 kg Physical Exam Narrative: White male, having chills, who appears tachypneic with a respiratory rate around 20. Currently he is on room air. Heart rate is slightly high at 107. HEENT: Atraumatic and normocephalic. Pupils equally round. Oropharynx with slightly dry mucous membranes Neck is supple without lymphadenopathy or thyromegaly Cardiovascular tachycardic, regular, no murmur Lungs a few sparse crackles. No wheezes Abdomen is soft with positive bowel sounds. No obvious organomegaly exam was deferred Extremities no cyanosis clubbing. No significant edema. Skin no rash Neuro no obvious focal deficits. Data 03/07/23 10:15 03/07/23 10:15 Other Labs: I have ordered serum ketones, recent TSH was checked and normal Odalys panel. Recent B12 was normal Dimer is elevated at 2.9. I have ordered a venous duplex of the lower extremities AST normal, ALT elevated to 41, alk phos at 210 Albumin 2.9 Urinalysis pending I have ordered a procalcitonin level I have ordered a BMP Influenza is negative COVID PCR pending Chest x-ray by my read demonstrates scattered bilateral infiltrates with interstitial changes bilaterally. Echo February 23 demonstrated an EF around 40%. Angiogram done on February 23 demonstrated RCA disease and first diagonal disease for which she got 3 drug-eluting stents A&P Assessment and plan (1) Pneumonia due to 2019-nCoV: Patient presents with COVID-19 pneumonia. He has significant bilateral infiltrates and history of high fever, and tachypnea He has multiple comorbidities Initiate remdesivir, dexamethasone Pulmonary toilet Zosyn empirically Sputum culture, MRSA PCR secondary to concern of possibility of superimposed bacterial pneumonia and elevated procalcitonin (2) Acute kidney injury: Likely secondary to COVID and dehydration Hydrate, cautiously. Avoid overhydration secondary to COVID and EF of 40% (3) Transaminitis: Likely secondary to COVID, repeat tomorrow (4) Coronary artery disease: Continue patient's low-dose aspirin, Plavix, beta-jacey, statin (5) Anemia: Significant anemia He has never had a colonoscopy Check fecal Hemoccult, iron studies. He has previously had B12 studies Placed on Protonix 40 mg twice daily CBC daily (6) Hyperkalemia: Patient hyperkalemic on admission. Hold lisinopril Avoid any renal toxic medication Repeat potassium at approximately 1600 and tomorrow (7) Type 1 diabetes: Sugars significantly elevated. Initiate Lantus 20 units daily and sliding scale. Serum ketones negative. Plan Elevated dimer. Likely secondary to COVID. Check venous duplex. Creatinine is high enough I do not want to do CTA considering no chest discomfort, not requiring oxygen For DVT prophylaxis High risk for worsening with multiple comorbidities, infiltrate on x-ray, significantly abnormal laboratory Attestations Medical Necessity Statement*: Will need greater than 2 midnight stay for evaluation and treatment of COVID-19 pneumonia, possible superimposed bacterial pneumonia, acute kidney injury Diagnoses Pneumonia due to 2019-nCoV U07.1; J12.82 Acute kidney injury N17.9 Transaminitis R74.01 Coronary artery disease I25.10 Anemia D64.9 Hyperkalemia E87.5 Type 1 diabetes E10.9 Time Spent (min) 49
--- NOTE | 2023-03-07 11:59 | ECG_ITS ---
[facility] Test Date: 2023-03-07 Pat Name: Trang Teran Department: Room: Gender: Male Mortar Mixer: : 1970 Requested By: Troy Ngo Order Number: [id number] Renae MD: Lucio Garcia M.D. Measurements Intervals [place] Rate: 104 P: 59 DE: 162 QRS: 71 QRSD: 109 T: 19 QT: 371 QTc: 490 Interpretive Statements SINUS TACHYCARDIA ABNORMAL RHYTHM ECG Compared to ECG 03/07/2023 09:51:30 ST (T wave) deviation no longer present Electronically Signed On 03-07-2023 15:58:40 CDT by Lucio Garcia M.D. [id number]
[2023-03-07 12:01] LABS: Ketone (Acetest) Serum Negative (Negative)
[2023-03-07] MEDS: clopidogrel 75 mg Tablet PO (12:12)
[2023-03-07] MEDS: dexamethasone 10 mg/mL INJ IM (12:12)
[2023-03-07] MEDS: insulin glargine 100 units/1 mL 20 UNIT SUBCUT (12:18)
[2023-03-07 12:22] LABS: Iron 15 ug/dL (59-158); Percent Saturation 9.3 % (20-50); Procalcitonin 0.97 ng/mL (0-0.5); Total Iron Binding Capacity 161 mcg/dl; Unsaturated Iron Binding 146 ug/dL (112-347)
[2023-03-07 12:24] LABS: Adenovirus Not Detected (NOT DETECT); Chlamydia Pneumoniae Not Detected (NOT DETECT); Coronavirus 229E,HKU1,NL63,OC4 Not Detected (NOT DETECT); Human Metapneumovirus Not Detected (NOT DETECT); Human Rhinovirus/Enterovirus Not Detected (NOT DETECT); Influenza A Not Detected (NOT DETECT); Influenza A H1 Not Detected (NOT DETECT); Influenza A H1-2009 Not Detected (NOT DETECT); Influenza A H3 Not Detected (NOT DETECT); Influenza B Not Detected (NOT DETECT); Mycoplasma Pneumoniae Not Detected (NOT DETECT); Parainfluenza Virus Type 1 Not Detected (NOT DETECT); Parainfluenza Virus Type 2 Not Detected (NOT DETECT); Parainfluenza Virus Type 3 Not Detected (NOT DETECT); Parainfluenza Virus Type 4 Not Detected (NOT DETECT); Respiratory Syncytial Virus A Not Detected (NOT DETECT); Respiratory Syncytial Virus B Not Detected (NOT DETECT)
[2023-03-07] MEDS: piperacillin-tazobactam 3.375 GM in sodium chloride 0.9% (plus) 50 ML IV ×2 (12:24→20:51)
[2023-03-07 12:27] LABS: SARS-COV-2 Detected (NOT DETECT)
[2023-03-07 12:44] LABS: Ferritin 3476 ng/mL (30-400)
[2023-03-07 13:24] LABS: Glucose Point of Care 469 mg/dL (70-110)
[2023-03-07] MEDS: insulin lispro 100 unit/1 mL SUBCUT ×3 (14:13→20:51)
[2023-03-07] MEDS: sodium chloride 0.9% 1,000 ML 75 ML IV (14:14)
[2023-03-07] MEDS: heparin 5,000 unit/mL INJ 1 mL 5000 UNIT SUBCUT (14:14)
[2023-03-07] MEDS: ipratropium-albuterol 3 mL Neb INHALATION ×2 (14:49→20:43)
[2023-03-07 17:35] LABS: Glucose Point of Care 400 mg/dL (70-110)
[2023-03-07 17:48] LABS: Anion Gap 16.9 (5-19); Blood Urea Nitrogen 50 mg/dL (6-20); Calcium 7.4 mg/dL (8.5-10.5); Carbon Dioxide 18 mmol/L (22-29); Chloride 99 mmol/L (98-107); Glomerular Filtration Rate 27.4 mL/min (90-130); Glucose 385 mg/dL (65-115); Osmolality Calculated 297 mOsm/kg (285-295); Potassium 4.9 mmol/L (3.5-5.1); Sodium 129 mmol/L (136-145)
[2023-03-07] MEDS: pantoprazole DR 40 mg Tablet PO (17:48)
[2023-03-07] MEDS: remdesivir 200 MG in sodium chloride 0.9% (100 ml) 60 ML 100 MG IV (17:49)
[2023-03-07] MEDS: budesonide 0.5 mg/2 mL Neb INHALATION (20:43)
[2023-03-07 20:44] LABS: Glucose Point of Care 363 mg/dL (70-110)
[2023-03-08] VITALS (14 sets, daily range): BP systolic 92–141; BP diastolic 52–87; PULSE 84–94; RESP 15–19; TEMP 36.6–37; O2SAT 91–96
[2023-03-08] MEDS: sodium chloride 0.9% 1,000 ML 75 ML IV (01:28)
[2023-03-08] MEDS: heparin 5,000 unit/mL INJ 1 mL 5000 UNIT SUBCUT ×2 (01:28→15:04)
[2023-03-08] MEDS: piperacillin-tazobactam 3.375 GM in sodium chloride 0.9% (plus) 50 ML IV ×2 (03:26→22:01)
[2023-03-08 05:08] LABS: Basophils % 0.3 %; Hematocrit 21.5 % (37-53); Lymphocytes # 0.4 10^3/uL (0.8-4.8); Lymphocytes % 10.6 %; Mean Corpuscular Volume 84.6 fl (82-101); Mean Platelet Volume 8.9 fL (7.4-10.4); Monocytes # 0.2 10^3/uL (0.2-0.9); Monocytes % 5.1 %; Neutrophils # 3.15 10^3/uL (1.8-7.7); Neutrophils % 79.7 %; Nucleated Red Blood Cells % 0 %; Platelet Count 233 10^3/cmm (157-399); Red Blood Count 2.54 10^6/uL (3.85-5.65); Red Cell Distribution Width 12.5 % (12.1-15.1); White Blood Count 3.95 10^3/uL (3.29-11.43)
[2023-03-08 05:24] LABS: Alanine Aminotransferase 164 U/L (0-41); Albumin Level 2.3 g/dL (3.5-5.2); Alkaline Phosphatase 169 U/L (40-130); Anion Gap 15.1 (5-19); Aspartate Amino Transferase 32 U/L (0-40); Blood Urea Nitrogen 52 mg/dL (6-20); Calcium 7.6 mg/dL (8.5-10.5); Carbon Dioxide 20 mmol/L (22-29); Chloride 99 mmol/L (98-107); Globulin 3.1 g/dL (1.3-4.6); Glomerular Filtration Rate 27.4 mL/min (90-130); Glucose 321 mg/dL (65-115); Magnesium 2.1 mg/dL (1.7-2.3); Osmolality Calculated 294 mOsm/kg (285-295); Potassium 5.1 mmol/L (3.5-5.1); Sodium 129 mmol/L (136-145); Total Bilirubin 0.2 mg/dL (0.15-1.2); Total Protein 5.4 g/dL (6.6-8.7)
[2023-03-08 07:01] LABS: Glucose Point of Care 333 mg/dL (70-110)
[2023-03-08] MEDS: budesonide 0.5 mg/2 mL Neb INHALATION ×2 (07:45→20:10)
[2023-03-08] MEDS: ipratropium-albuterol 3 mL Neb INHALATION ×3 (07:45→20:10)
--- NOTE | 2023-03-08 08:21 | US_ITS ---
WS: [id number] RENAL ULTRASOUND HISTORY: renal failure COMPARISON: None available. TECHNIQUE: 2-D and color Doppler imaging of the kidney submitted. Right kidney: 13.1 cm x 6.9 cm x 5.4 cm. Cortex: 1.7 cm Normal echogenicity with no hydronephrosis or mass. Left kidney: 14.3 cm x 5.5 cm x 5.9 cm. Cortex: 2.4 cm Normal echogenicity with no hydronephrosis or mass. Aorta: Normal. Urinary Bladder: Nondistended. IMPRESSION: Normal renal ultrasound.
--- NOTE | 2023-03-08 08:49 | PC.CHAP ---
Pastoral Care Encounter/Spiritual Assessment Type of Contact [] Declined follow up rep visit [] Patient/Family/Request visit [] Outpatient visit [] Follow-up visit [] Physician referral [] Code/Alert [] Routine visit [] Staff referral [] Actively dying [] Patient sleeping [] Family support [] [] Out of room [] Palliative care [] [] Receiving care in room [] Pre-surgical visit [] Trauma [] Long length of stay [] ICU visit [x] Other:Covid precautions-Did not enter room Relational/Emotional Strength [] Patient feels connected with others/family/visitors/staff [] Distress [] Loneliness/isolation [] Abandonment Spirituality of Patient [] Person of Kailee [] Attends Gnosticist of their Kailee [] Believes in Prayer [] Reads Bible or Sikhism materials [] There are Spiritual issues to be addressed Environmental Tech Interventions [] Prayer [] Active listening [] Non-anxious presence [] Spiritual/emotional support [] Crisis/trauma care [] Spiritual counseling [] Bereavement support [] Provided bereavement packet [] Provided Bible/devotional materials [] Provided toy/stuffed animal, coloring book to patient or family member [] Provided Communion [] Anointing/Cinebar [] Salvation [] Completed spiritual assessment [] Other: Impact on Illness or Injury [] Angry [] Fearful [] Anxious [] Often cries [] Exhaustion [] Unable to work [] Unable to attend spiritism [] Unable to walk/stand [] Unable to read [] Unable to drive [] Unable to eat/drink [] Unable to sleep [] Unable to be with family [] Patient intubated [] Other: Summary Time spent with patient
[2023-03-08] MEDS: atorvastatin 40 mg Tablet PO (09:57)
[2023-03-08] MEDS: pantoprazole DR 40 mg Tablet PO ×2 (09:58→17:27)
[2023-03-08] MEDS: aspirin 81 mg EC Tablet PO (09:58)
[2023-03-08] MEDS: dexamethasone 10 mg/mL INJ 6 MG IVP (09:58)
[2023-03-08] MEDS: clopidogrel 75 mg Tablet PO (09:58)
[2023-03-08] MEDS: metoprolol succinate ER (24 HR) 25 mg Tablet 12.5 MG PO (09:58)
[2023-03-08] MEDS: insulin lispro 100 unit/1 mL SUBCUT ×4 (10:00→21:33)
--- NOTE | 2023-03-08 11:13 | PC.SOCIAL ---
IMM Update IMM not updated as patient reports that he does not have MCR.
--- NOTE | 2023-03-08 12:23 | PM.PN ---
Subjective Subjective: Trang reports he feels a little bit better today. Still coughing, but perhaps a little less short of breath. No chest pain. Medications: Reviewed: Yes Vitals/I&O/Wt Last Vital Signs Temp 98.4 F 03/08/23 11:25 Pulse 92 03/08/23 11:25 Resp 16 03/08/23 11:25 BP 101/63 03/08/23 11:25 Pulse Ox 93 03/08/23 11:10 O2 Del Method Room Air 03/08/23 07:47 03/07/23 03/08/23 03/08/23 22:59 06:59 14:59 Intake Total 1148.333 / 1148.333 892.5 / 2040.833 290 / 290 Output Total 150 / 150 Balance 998.333 / 998.333 892.5 / 1890.833 290 / 290 Weight last 48 hrs Weight 77.111 kg Physical Exam Narrative: General exam no distress Neck is supple without lymphadenopathy or thyromegaly Cardiovascular regular rate and rhythm without murmur Lungs a few sparse crackles. No wheezes Abdomen is soft with positive bowel sounds. No obvious organomegaly Extremities no cyanosis clubbing. No significant edema. Data 03/08/23 04:40 03/08/23 04:40 Micro: Microbiology 03/07/23 13:53 Blood Culture - Preliminary Blood SPECIMEN COLLECTED 03/07/23 13:50 Blood Culture - Preliminary Blood SPECIMEN COLLECTED A&P Assessment and plan (1) Pneumonia due to 2019-nCoV: Patient presents with COVID-19 pneumonia. He has significant bilateral infiltrates and history of high fever, and tachypnea He has multiple comorbidities Continue remdesivir, dexamethasone Pulmonary toilet Zosyn empirically Sputum culture, MRSA PCR secondary to concern of possibility of superimposed bacterial pneumonia. These are pending. Note his procalcitonin level was elevated. (2) Acute kidney injury: Likely secondary to COVID and dehydration Continue to hydrate cautiously. Avoid overhydration secondary to COVID and EF of 40% Check renal ultrasound Avoid any renal toxic medication (3) Transaminitis: Likely secondary to COVID, improving (4) Coronary artery disease: Continue patient's low-dose aspirin, Plavix, beta-jacey, statin (5) Anemia: Significant anemia. Stool Hemoccult pending. He is iron deficient. 1 unit of packed red blood cells today considering his acute kidney injury, hemoglobin is 7.1, COVID-19 pneumonia. He has never had a colonoscopy He has previously had B12 studies Continue Protonix 40 mg twice daily CBC daily (6) Hyperkalemia: Patient hyperkalemic on admission. Hold lisinopril Hyperkalemia has resolved (7) Type 1 diabetes: Continue Lantus 20 units daily and sliding scale. Serum ketones negative on admission. Plan Elevated dimer. Likely secondary to COVID. Check venous duplex. Creatinine is high enough I do not want to do CTA considering no chest discomfort, not requiring oxygen. Dimer decreasing Heparin for DVT prophylaxis High risk for worsening with multiple comorbidities, infiltrate on x-ray, significantly abnormal laboratory Attestations Medical Necessity Statement*: Needs continued hospitalization for IV antibiotics for possible superimposed pneumonia, antiviral for COVID, close follow-up of renal failure Diagnoses Pneumonia due to 2019-nCoV U07.1; J12.82 Acute kidney injury N17.9 Transaminitis R74.01 Coronary artery disease I25.10 Anemia D64.9 Hyperkalemia E87.5 Type 1 diabetes E10.9 Time Spent (min) 28
[2023-03-08 13:47] LABS: Glucose Point of Care 455 mg/dL (70-110)
[2023-03-08 17:05] LABS: Glucose Point of Care 484 mg/dL (70-110)
[2023-03-08 20:10] LABS: Hematocrit 23.9 % (37-53)
[2023-03-08] MEDS: remdesivir 100 MG in sodium chloride 0.9% (100 ml) 80 ML IV (20:42)
[2023-03-08 20:51] LABS: Glucose Point of Care 350 mg/dL (70-110)
[2023-03-09] VITALS (15 sets, daily range): BP systolic 111–137; BP diastolic 61–89; PULSE 83–97; RESP 14–19; TEMP 36.3–36.7; O2SAT 90–94
[2023-03-09] MEDS: sodium chloride 0.9% 1,000 ML 75 ML IV ×2 (00:35→12:52)
[2023-03-09] MEDS: heparin 5,000 unit/mL INJ 1 mL 5000 UNIT SUBCUT ×2 (01:43→14:59)
[2023-03-09] MEDS: piperacillin-tazobactam 3.375 GM in sodium chloride 0.9% (plus) 50 ML IV (05:22)
[2023-03-09 05:32] LABS: Basophils % 0.1 %; Lymphocytes # 0.4 10^3/uL (0.8-4.8); Lymphocytes % 4.9 %; Mean Corpuscular HGB Conc 33.2 g/dL (30-55); Mean Corpuscular Hemoglobin 28.4 pg (27-33); Mean Corpuscular Volume 85.6 fl (82-101); Mean Platelet Volume 8.9 fL (7.4-10.4); Monocytes # 0.5 10^3/uL (0.2-0.9); Monocytes % 5.7 %; Neutrophils # 7.63 10^3/uL (1.8-7.7); Neutrophils % 88.1 %; Nucleated Red Blood Cells % 0 %; Platelet Count 302 10^3/cmm (157-399); Red Blood Count 2.92 10^6/uL (3.85-5.65); Red Cell Distribution Width 12.7 % (12.1-15.1); White Blood Count 8.65 10^3/uL (3.29-11.43)
[2023-03-09 05:56] LABS: Alanine Aminotransferase 125 U/L (0-41); Alkaline Phosphatase 153 U/L (40-130); Anion Gap 13.7 (5-19); Aspartate Amino Transferase 30 U/L (0-40); Blood Urea Nitrogen 59 mg/dL (6-20); Calcium 7.6 mg/dL (8.5-10.5); Carbon Dioxide 18 mmol/L (22-29); Chloride 105 mmol/L (98-107); Globulin 2.9 g/dL (1.3-4.6); Glomerular Filtration Rate 30.1 mL/min (90-130); Glucose 252 mg/dL (65-115); Magnesium 2.2 mg/dL (1.7-2.3); Osmolality Calculated 299 mOsm/kg (285-295); Potassium 4.7 mmol/L (3.5-5.1); Sodium 132 mmol/L (136-145); Total Bilirubin 0.2 mg/dL (0.15-1.2); Total Protein 4.9 g/dL (6.6-8.7)
[2023-03-09 06:24] LABS: Glucose Point of Care 259 mg/dL (70-110)
[2023-03-09] MEDS: budesonide 0.5 mg/2 mL Neb INHALATION ×2 (08:00→19:44)
[2023-03-09] MEDS: ipratropium-albuterol 3 mL Neb INHALATION ×3 (08:01→19:44)
--- NOTE | 2023-03-09 09:14 | PM.PN ---
Subjective Subjective: Afebrile Laying supine No overnight events Patient endorsing feeling better Had a bowel movement Eating okay Not requiring oxygen Vitals/I&O/Wt Last Vital Signs Temp 97.6 F 03/09/23 07:52 Pulse 86 03/09/23 08:00 Resp 16 03/09/23 08:00 BP 131/82 03/09/23 07:52 Pulse Ox 93 03/09/23 08:00 O2 Del Method Room Air 03/09/23 08:00 03/08/23 03/09/23 03/09/23 22:59 06:59 14:59 Intake Total 690 / 2700 50 / 2750 620 / 620 Output Total 800 / 800 600 / 600 Balance 690 / 2700 -750 / 1950 Weight last 48 hrs Weight 77.111 kg Physical Exam Narrative: Patient is laying supine Currently on room air GCS 15 Of audible wheezing or crackles Doing well on room air Lower extremity without any swelling Pleasant and cooperative Nonfocal neuro exam Data 03/09/23 05:05 03/09/23 05:05 Micro: Microbiology 03/07/23 13:53 Blood Culture - Preliminary Blood NEGATIVE TO DATE 03/07/23 13:50 Blood Culture - Preliminary Blood NEGATIVE TO DATE A&P Assessment and plan (1) Type 1 diabetes: (2) Hyperkalemia: (3) Anemia: (4) Pneumonia due to 2019-nCoV: (5) Acute kidney injury: (6) Transaminitis: Plan COVID-19 pneumonia Not requiring oxygen Monitor inflammatory markers Change IV antibiotics to IV ceftriaxone and doxycycline Change IV Decadron to p.o. Acute on chronic kidney disease: Creatinine 2.3 today, adequate urine output, change IV antibiotics to ceftriaxone No indication for dialysis I will continue IV fluids for now Hold nephrotoxic agents Abnormal transaminases: ALT 125, alk phosphatase 153 no active nausea, vomiting or right upper quadrant pain clinically does not look in fluid overload recent PCI EF 40% Recent PCI, continue dual antiplatelet therapy Chronic anemia: Stable, check FOBT Patient will need outpatient colonoscopy Full code Cardiac diet Attestations Medical Necessity Statement*: Continue medical management Diagnoses Type 1 diabetes E10.9 Hyperkalemia E87.5 Anemia D64.9 Pneumonia due to 2019-nCoV U07.1; J12.82 Acute kidney injury N17.9 Transaminitis R74.01
[2023-03-09] MEDS: atorvastatin 40 mg Tablet PO (09:24)
[2023-03-09] MEDS: insulin lispro 100 unit/1 mL SUBCUT ×4 (09:24→21:09)
[2023-03-09] MEDS: metoprolol succinate ER (24 HR) 25 mg Tablet 12.5 MG PO (09:24)
[2023-03-09] MEDS: clopidogrel 75 mg Tablet PO (09:25)
[2023-03-09] MEDS: pantoprazole DR 40 mg Tablet PO ×2 (09:25→17:55)
[2023-03-09] MEDS: insulin glargine 100 units/1 mL 20 UNIT SUBCUT (09:25)
[2023-03-09] MEDS: aspirin 81 mg EC Tablet PO (09:25)
[2023-03-09] MEDS: cefTRIAXone 1,000 MG in sodium chloride 0.9% (plus) 50 ML 100 MG IV (11:23)
[2023-03-09 11:41] LABS: Glucose Point of Care 346 mg/dL (70-110)
[2023-03-09 16:39] LABS: Glucose Point of Care 316 mg/dL (70-110)
[2023-03-09] MEDS: doxycycline 100 mg Tablet PO (17:54)
[2023-03-09] MEDS: remdesivir 100 MG in sodium chloride 0.9% (100 ml) 80 ML IV (17:55)
[2023-03-09 19:24] LABS: Methicillin-Resist S.aureu PCR NOT DETECTED (NOT DETECTED)
[2023-03-09 19:43] LABS: Add Urine Microscopic? YES; Bilirubin Urine Neg (Negative); Blood Urine 2+ (Negative); Glucose Urine UA 4+ (Normal); Ketones Urine Negative (Negative); Leukocyte Esterase Urine Negative (Negative); Nitrate Urine Negative (Negative); Protein Urine 3+ (Negative); Specific Gravity, Urine 1.015 (1.005-1.030); Urine Appearance Clear (CLEAR); Urine Color Yellow (Yellow); Urobilinogen Urine Neg (Negative); pH Urine 5 (5-7)
[2023-03-09 19:44] LABS: Add Urine Culture? No; Amorphous Sediment Urine 1+ /hpf; RBC Urine RARE /hpf (0-2); Squamous Epithelial Cell Urine RARE /hpf (0-5); WBC Urine RARE /hpf (0-5)
[2023-03-09 20:59] LABS: Glucose Point of Care 363 mg/dL (70-110)
[2023-03-10] VITALS (16 sets, daily range): BP systolic 123–143; BP diastolic 71–85; PULSE 9–106; RESP 16–24; TEMP 36.5–36.9; O2SAT 86–96
[2023-03-10] MEDS: heparin 5,000 unit/mL INJ 1 mL 5000 UNIT SUBCUT ×2 (01:54→14:58)
[2023-03-10] MEDS: ipratropium-albuterol 3 mL Neb INHALATION ×4 (02:37→20:10)
[2023-03-10] MEDS: sodium chloride 0.9% 1,000 ML 75 ML IV (03:09)
--- NOTE | 2023-03-10 03:52 | XRR_ITS ---
PROCEDURE INFORMATION: Exam: XR Chest Exam date and time: 03/10/2023 4:14 AM Age: 52 years old Clinical indication: Shortness of breath; Patient HX: Worsening SOB. Covid +. History of chf. ; Additional info: Increase SOB and requring more oxygen. TECHNIQUE: Imaging protocol: Radiologic exam of the chest. Views: 1 view. COMPARISON: CR XR chest 1V portable [id number] 03/07/2023 10:09 AM FINDINGS: Lungs: Diffusely distributed airspace opacities in both lungs suggestive of bilateral pulmonary edema. Airspace opacities in bilateral lung bases are more prominent, therefore superimposed bilateral lower lobe pneumonia cannot be excluded. Pleural spaces: Unremarkable. No pleural effusion. No pneumothorax. Heart/Mediastinum: Mild cardiomegaly. No mediastinal widening. Bones/joints: Unremarkable. XR/XR chest 1V portable [id number] IMPRESSION: 1. Diffusely distributed airspace opacities in both lungs suggestive of bilateral pulmonary edema. Airspace opacities in bilateral lung bases are more prominent, therefore superimposed bilateral lower lobe pneumonia cannot be excluded. 2. Mild cardiomegaly.
[2023-03-10 06:31] LABS: Glucose Point of Care 83 mg/dL (70-110)
[2023-03-10] MEDS: budesonide 0.5 mg/2 mL Neb INHALATION ×2 (08:03→20:10)
[2023-03-10] MEDS: doxycycline 100 mg Tablet PO ×2 (09:38→18:32)
[2023-03-10] MEDS: metoprolol succinate ER (24 HR) 25 mg Tablet 12.5 MG PO (09:38)
[2023-03-10] MEDS: dexamethasone 4 mg Tablet 6 MG PO (09:39)
[2023-03-10] MEDS: pantoprazole DR 40 mg Tablet PO ×2 (09:39→18:32)
[2023-03-10] MEDS: atorvastatin 40 mg Tablet PO (09:39)
[2023-03-10] MEDS: aspirin 81 mg EC Tablet PO (09:39)
[2023-03-10] MEDS: cefTRIAXone 1,000 MG in sodium chloride 0.9% (plus) 50 ML 100 MG IV (09:39)
[2023-03-10] MEDS: clopidogrel 75 mg Tablet PO (09:39)
[2023-03-10] MEDS: insulin glargine 100 units/1 mL 20 UNIT SUBCUT (09:40)
[2023-03-10 09:49] LABS: Anion Gap 16.6 (5-19); Blood Urea Nitrogen 56 mg/dL (6-20); Calcium 7.7 mg/dL (8.5-10.5); Carbon Dioxide 17 mmol/L (22-29); Chloride 105 mmol/L (98-107); Glomerular Filtration Rate 30.1 mL/min (90-130); Glucose 69 mg/dL (65-115); Osmolality Calculated 292 mOsm/kg (285-295); Potassium 4.6 mmol/L (3.5-5.1); Sodium 134 mmol/L (136-145)
--- NOTE | 2023-03-10 10:33 | P.PN_ITS ---
Subjective Subjective: Patient is fluid overloaded Significant edema of lower extremities Fluids were discontinued yesterday We will give him IV Lasix today EF is 40% He is not requiring oxygen He is doing well on room air Vitals/I&O/Wt Last Vital Signs Temp 97.7 F 03/10/23 08:00 Pulse 94 03/10/23 08:00 Resp 22 H 03/10/23 08:00 BP 143/79 03/10/23 08:00 Pulse Ox 88 L 03/10/23 08:00 O2 Del Method Room Air 03/10/23 08:00 O2 Flow Rate 3 03/10/23 03:16 03/09/23 03/10/23 03/10/23 22:59 06:59 14:59 Intake Total 820 / 2941.25 1331.25 / 4272.50 584 / 584 Output Total 300 / 1300 Balance 820 / 1941.25 1031.25 / 2972.50 584 / 584 Physical Exam Narrative: Patient sitting at the bedside Signs of fluid overload present Significant edema of lower extremities Currently not requiring oxygen Hypertensive Mild tachypneic S1, S2 Lungs not showing any signs of crackles or wheezing Data 03/09/23 05:05 03/10/23 08:57 A&P Assessment and plan (1) Pneumonia due to 2019-nCoV: (2) Acute kidney injury: (3) Transaminitis: (4) Coronary artery disease: (5) Vitamin D deficiency: (6) CHF exacerbation: Plan Acute diastolic CHF exacerbation We will give him IV Lasix EF is 40% COVID-19 Continue ceftriaxone and doxycycline Afebrile Not requiring oxygen Continue Decadron Acute on chronic kidney disease which seems to be cardiorenal in nature now We will give him diuretics Creatinine 2.3, his baseline seems to be around 1.2-1.5 Monitor urine output with diuretic response and correlate with creatinine Full code Cardiac diet Patient plan: Discharge home likely in next 48 hours Attestations Medical Necessity Statement*: Continue medical management Diagnoses Pneumonia due to 2019-nCoV U07.1; J12.82 Acute kidney injury N17.9 Transaminitis R74.01 Coronary artery disease I25.10 Vitamin D deficiency E55.9 CHF exacerbation I50.9
[2023-03-10 11:42] LABS: Glucose Point of Care 194 mg/dL (70-110)
[2023-03-10] MEDS: FUROsemide 10 mg/mL SDV 10mL 60 MG IVP (11:49)
[2023-03-10] MEDS: insulin lispro 100 unit/1 mL SUBCUT ×2 (11:49→21:13)
[2023-03-10 17:16] LABS: Glucose Point of Care 101 mg/dL (70-110)
[2023-03-10] MEDS: remdesivir 100 MG in sodium chloride 0.9% (100 ml) 80 ML IV (18:32)
[2023-03-10 20:44] LABS: Glucose Point of Care 172 mg/dL (70-110)
[2023-03-11] VITALS (8 sets, daily range): BP systolic 112–128; BP diastolic 61–74; PULSE 82–93; RESP 18–21; TEMP 36.4–36.6; O2SAT 82–94
[2023-03-11] MEDS: heparin 5,000 unit/mL INJ 1 mL 5000 UNIT SUBCUT (03:22)
[2023-03-11 05:27] LABS: Basophils % 0.1 %; Hematocrit 26.6 % (37-53); Lymphocytes # 0.6 10^3/uL (0.8-4.8); Lymphocytes % 7.6 %; Mean Corpuscular HGB Conc 32.7 g/dL (30-55); Mean Corpuscular Hemoglobin 28.2 pg (27-33); Mean Corpuscular Volume 86.1 fl (82-101); Mean Platelet Volume 8.1 fL (7.4-10.4); Monocytes # 0.4 10^3/uL (0.2-0.9); Monocytes % 5.2 %; Neutrophils # 6.63 10^3/uL (1.8-7.7); Neutrophils % 85.6 %; Nucleated Red Blood Cells % 0 %; Platelet Count 362 10^3/cmm (157-399); Red Blood Count 3.09 10^6/uL (3.85-5.65); Red Cell Distribution Width 13.2 % (12.1-15.1); White Blood Count 7.75 10^3/uL (3.29-11.43)
[2023-03-11 05:47] LABS: Anion Gap 11.9 (5-19); Blood Urea Nitrogen 57 mg/dL (6-20); Calcium 7.5 mg/dL (8.5-10.5); Carbon Dioxide 20 mmol/L (22-29); Chloride 103 mmol/L (98-107); Glomerular Filtration Rate 35.4 mL/min (90-130); Glucose 150 mg/dL (65-115); Osmolality Calculated 289 mOsm/kg (285-295); Potassium 4.9 mmol/L (3.5-5.1); Sodium 130 mmol/L (136-145)
[2023-03-11 06:50] LABS: Glucose Point of Care 167 mg/dL (70-110)
[2023-03-11] MEDS: insulin glargine 100 units/1 mL 20 UNIT SUBCUT (08:42)
[2023-03-11] MEDS: ipratropium-albuterol 3 mL Neb INHALATION (08:42)
[2023-03-11] MEDS: FUROsemide 10 mg/mL SDV 10mL 60 MG IVP (08:42)
[2023-03-11] MEDS: insulin lispro 100 unit/1 mL SUBCUT ×2 (08:42→11:46)
[2023-03-11] MEDS: budesonide 0.5 mg/2 mL Neb INHALATION (08:42)
[2023-03-11] MEDS: atorvastatin 40 mg Tablet PO (08:43)
[2023-03-11] MEDS: pantoprazole DR 40 mg Tablet PO (08:43)
[2023-03-11] MEDS: doxycycline 100 mg Tablet PO (08:43)
[2023-03-11] MEDS: clopidogrel 75 mg Tablet PO (08:43)
[2023-03-11] MEDS: dexamethasone 4 mg Tablet 6 MG PO (08:43)
[2023-03-11] MEDS: aspirin 81 mg EC Tablet PO (08:43)
[2023-03-11] MEDS: cefTRIAXone 1,000 MG in sodium chloride 0.9% (plus) 50 ML 100 MG IV (08:44)
--- NOTE | 2023-03-11 08:58 | PM.DCS ---
Discharge Providers Date of Admission: 03/07/23 12:50 Date of Discharge: March 11, 2023 Attending Provider at Admission: Juan M Mccormick MD Attending Provider at Discharge: Ammon Billingsley MD Primary Care Provider: Jhonatan Malloy DO Diagnoses at Discharge Discharge Diagnosis (1) Pneumonia due to 2019-nCoV: Status: Acute (2) Acute kidney injury: Status: Acute (3) Transaminitis: Status: Acute (4) Coronary artery disease: Status: Acute (5) Vitamin D deficiency: Status: Acute (6) CHF exacerbation: Status: Acute Reason for Visit Reason for Visit: SOB Hospital Course Hospital Course 52-year male who was admitted for management evaluation of pneumonia related to COVID-19, he was given Decadron & remdesivir as he was not requiring oxygen at all, he carries history of reduced EF congestive heart failure and experienced acute on chronic kidney disease secondary to cardiorenal in nature his creatinine started improving with use of diuretics, lisinopril was held, he was put on vancomycin and Zosyn for possible superimposed bacterial infection which was switched to ceftriaxone and p.o. doxycycline he remained afebrile, at the time of discharge his creatinine is 2 which is trending down, adequate urine output with diuretics, will give him BMP prescription to check creatinine within 3 to 4 days continue Bumex 1 mg daily along potassium supplement. Holding lisinopril at the time of discharge. Does have chronic anemia which can be evaluated outpatient. No active bleed. Patient qualified for 2 L of oxygen at the time of discharge Of note, patient recently had PCI he has to continue aspirin and Plavix, considering low EF he would definitely benefit from continuation of lisinopril which I am holding for just 1 week Physical Exam Narrative: Awake and alert Signs of fluid overload improving Abdomen soft Required 2 L S1, S2 No crackles or wheezing noted on lung auscultation Discharge Data Studies Completed and Pending Completed Studies During Hospitalization Category Date Time Status XR chest 1V portable [id number] Stat Exams 03/07/23 09:56 Completed XR chest 1V portable [id number] Stat Exams 03/10/23 03:52 [place] [id number] Routine Ultrasound 03/07/23 11:45 Completed US renal BI* [id number] Routine Ultrasound 03/08/23 08:21 Completed Pending at discharge Category Date Time Status Blood Culture Stat Lab 03/07/23 13:53 Results Fecal Occult Blood [Immunochemical Fecal OCB] Routine Lab 03/07/23 13:27 Uncollected Sputum Culture and Gram Stain Routine Lab 03/07/23 13:27 Uncollected Radiology Impressions Chest X-Ray 03/10/23 03:52 IMPRESSION: 1. Diffusely distributed airspace opacities in both lungs suggestive of bilateral pulmonary edema. Airspace opacities in bilateral lung bases are more prominent, therefore superimposed bilateral lower lobe pneumonia cannot be excluded. 2. Mild cardiomegaly. Laboratory Results WBC 7.75 10^3/uL (3.29-11.43) 03/11/23 05:15 RBC 3.09 10^6/uL (3.85-5.65) L 03/11/23 05:15 Hgb 8.70 g/dL (11.27-16.99) L 03/11/23 05:15 Hct 26.6 % (37-53) L 03/11/23 05:15 MCV 86.1 fl (82-101) 03/11/23 05:15 MCH 28.2 pg (27-33) 03/11/23 05:15 MCHC 32.7 g/dL (30-55) 03/11/23 05:15 RDW 13.2 % (12.1-15.1) 03/11/23 05:15 Plt Count 362 10^3/cmm (157-399) 03/11/23 05:15 MPV 8.1 fL (7.4-10.4) 03/11/23 05:15 Neut % (Auto) 85.6 % 03/11/23 05:15 Lymph % (Auto) 7.6 % 03/11/23 05:15 [place] % (Auto) 5.2 % 03/11/23 05:15 Eos % (Auto) 0.0 % 03/11/23 05:15 Baso % (Auto) 0.1 % 03/11/23 05:15 Neut # (Auto) 6.63 10^3/uL (1.8-7.7) 03/11/23 05:15 Lymph # (Auto) 0.6 10^3/uL (0.8-4.8) L 03/11/23 05:15 [place] # (Auto) 0.4 10^3/uL (0.2-0.9) 03/11/23 05:15 Eos # (Auto) 0.0 10^3/uL (0.0-0.8) 03/11/23 05:15 Baso # (Auto) 0.0 10^3/uL (0.0-0.1) 03/11/23 05:15 Nucleated RBC % (auto) 0 % 03/11/23 05:15 Nucleated RBCs # 0.0 /100WBC 03/11/23 05:15 D-Dimer 2.40 ug/mLFEU (0-0.59) H 03/08/23 04:40 Sodium 130 mmol/L (136-145) L 03/11/23 05:15 Potassium 4.9 mmol/L (3.5-5.1) 03/11/23 05:15 Chloride 103 mmol/L (98-107) 03/11/23 05:15 Carbon Dioxide 20 mmol/L (22-29) L 03/11/23 05:15 Anion Gap 11.9 (5-19) 03/11/23 05:15 BUN 57 mg/dL (6-20) H 03/11/23 05:15 Creatinine 2.0 mg/dL (0.7-1.2) H 03/11/23 05:15 GFR Calculation 35.4 mL/min (90-130) L 03/11/23 05:15 Glucose 150 mg/dL (65-115) H 03/11/23 05:15 POC Glucose 167 mg/dL (70-110) H 03/11/23 06:46 Calculated Osmolality 289 mOsm/kg (285-295) 03/11/23 05:15 Calcium 7.5 mg/dL (8.5-10.5) L 03/11/23 05:15 Magnesium 2.2 mg/dL (1.7-2.3) 03/09/23 05:05 Iron 15 ug/dL (59-158) L 03/07/23 10:15 TIBC 161 mcg/dl 03/07/23 10:15 % Saturation 9.3 % (20-50) L 03/07/23 10:15 Unsat Iron Binding 146 ug/dL (112-347) 03/07/23 10:15 Ferritin 3476 ng/mL (30-400) H 03/07/23 10:15 Total Bilirubin 0.2 mg/dL (0.15-1.2) 03/09/23 05:05 AST 30 U/L (0-40) 03/09/23 05:05 ALT 125 U/L (0-41) H 03/09/23 05:05 Alkaline Phosphatase 153 U/L (40-130) H 03/09/23 05:05 NT-Pro-B Natriuret Pep 58875 pg/mL (0-125) H 03/07/23 10:15 Total Protein 4.9 g/dL (6.6-8.7) L 03/09/23 05:05 Albumin 2.0 g/dL (3.5-5.2) L 03/09/23 05:05 Globulin 2.9 g/dL (1.3-4.6) 03/09/23 05:05 Procalcitonin 0.97 ng/mL (0-0.5) H 03/07/23 10:15 Urine Color Yellow (Yellow) 03/09/23 18:45 Urine Appearance Clear (CLEAR) 03/09/23 18:45 Urine pH 5 (5-7) 03/09/23 18:45 Ur Specific [place] 1.015 (1.005-1.030) 03/09/23 18:45 Urine Protein 3+ (Negative) H 03/09/23 18:45 Urine Glucose (UA) 4+ (Normal) H 03/09/23 18:45 Urine Ketones Negative (Negative) 03/09/23 18:45 Urine Blood 2+ (Negative) H 03/09/23 18:45 Urine Nitrate Negative (Negative) 03/09/23 18:45 Urine Bilirubin Neg (Negative) 03/09/23 18:45 Urine Urobilinogen Neg mg/dL (Negative) 03/09/23 18:45 Ur Leukocyte Esterase Negative (Negative) 03/09/23 18:45 Urine RBC Rare /hpf (0-2) 03/09/23 18:45 Urine WBC Rare /hpf (0-5) 03/09/23 18:45 Ur Squamous Epith Cells Rare /hpf (0-5) 03/09/23 18:45 Amorphous Sediment 1+ /hpf 03/09/23 18:45 Urine Bacteria None /hpf (NONE) 03/09/23 18:45 Serum Ketones Negative (Negative) 03/07/23 10:15 Coronavirus 229E (PCR) Not detected (NOT DETECT) 03/07/23 10:19 Influenza Type A Ag negative (Negative) 03/07/23 10:19 Influenza Type B Ag negative (Negative) 03/07/23 10:19 SARS-CoV-2 (PCR) Detected (NOT DETECT) A 03/07/23 10:19 MRSA (PCR) Not detected (NOT DETECTED) 03/07/23 15:25 Blood Type A Negative 03/08/23 07:14 Rho(D) Type Negative 03/08/23 07:14 Antibody Screen Negative 03/08/23 07:14 Crossmatch See Detail 03/08/23 07:14 Vitals Last Vital Signs Temp 97.7 F 03/11/23 08:00 Pulse 93 03/11/23 08:50 Resp 18 03/11/23 08:50 BP 128/74 03/11/23 08:00 Pulse Ox 94 03/11/23 08:50 O2 Del Method Nasal Cannula 03/11/23 08:50 O2 Flow Rate 2 03/11/23 08:50 Discharge Plan Discharge Patient Disposition: Home Condition: Stable Prescriptions: New albuterol sulfate 90 mcg/actuation HFA aerosol inhaler 2 inh inhalation Q8H PRN (Reason: shortness of breath or wheezing) Qty: 8.5 3RF potassium chloride 10 mEq tablet extended release 10 meq PO DAILY Qty: 30 0RF Rx Instructions: only take when you are taking bumetanide/Bumex doxycycline monohydrate 100 mg Tablet 100 mg PO BID Qty: 6 0RF bumetanide 1 mg tablet 1 mg PO DAILY Qty: 60 1RF Continued cholecalciferol (vitamin D3) 50 mcg (2,000 unit) capsule 50 mcg PO DAILY (DME) insulin syringe-needle U-100 [BD Insulin Syringe Ultra-Fine] 1 mL 31 gauge x 5/16 syringe See Rx Instructions .Route Rx Instructions: As directed (DME) lancets [Accu-Chek Softclix Lancets] Misc See Rx Instructions .Route Rx Instructions: As directed (DME) blood-glucose meter [Accu-Chek Guide Glucose Meter] Misc See Rx Instructions .Route Rx Instructions: As directed (DME) Dexcom G6 Padder Misc See Rx Instructions .ROUTE .MEDSUPPLY Qty: 1 0RF Rx Instructions: As directed (DME) Dexcom G6 Sensor Device See Rx Instructions .MEDSUPPLY Qty: 9 3RF Rx Instructions: As directed (DME) Dexcom G6 Transmitter Device See Rx Instructions .MEDSUPPLY Qty: 3 3RF Rx Instructions: As directed atorvastatin 40 mg Tablet 40 mg PO DAILY Qty: 90 3RF insulin aspart U-100 100 unit/mL cartridge 25 unit SUBCUT TID Qty: 15 3RF aspirin 81 mg tablet,delayed release (DR/EC) 81 mg PO DAILY Qty: 20 0RF clopidogrel [Plavix] 75 mg tablet 75 mg PO DAILY Qty: 20 0RF metoprolol succinate [Toprol XL] 25 mg tablet extended release 24 hr 12.5 mg PO DAILY Qty: 90 0RF Held lisinopril 5 mg tablet 5 mg PO DAILY Qty: 60 0RF Hold Instructions: Resume on 03/18/23. Discharge Orders: Discharge Order (Routine); Ordered 03/11/23 Ordered By: Ammon Billingsley Other Ambulatory Orders: Basic Metabolic Panel (Routine) Timeframe: 3 Days Facility: [facility] [place] - Location: Lab - Main Lab Ordered By: Ammon Billingsley Referrals: Jhonatan Malloy DO [Primary Care Provider] - 4-7 days Discharge Diet: Cardiac Discharge Activity: Increase activity as tolerated Patient Instructions: Opioid Safety Discharge Attestations Time Spent in Discharge Care*: greater than 30 min Quality Metrics Clinical Quality Measures [ No reported AMI, CVA or VTE this stay] Coding Level of Care Code Acute Code for [facility] Fwd Diagnoses Pneumonia due to 2019-nCoV U07.1; J12.82 Acute kidney injury N17.9 Transaminitis R74.01 Coronary artery disease I25.10 Vitamin D deficiency E55.9 CHF exacerbation I50.9
[2023-03-11 11:08] LABS: Glucose Point of Care 283 mg/dL (70-110)
== END 2023-03-11 15:50 | disposition home or self-care (01) | DRG 177 ==
LOC: ER 12:37 → MEDSURG 12:50
PROVIDERS: Admitting Provider Internal Medicine; Emergency Provider Family Medicine; PCP Emergency Medicine Emergency Medical Services; Visit Provider Internal Medicine
DX: U07.1 COVID-19 (principal); I50.23 Acute on chronic systolic (congestive) heart failure; J12.82 Pneumonia due to coronavirus disease 2019; J15.9 Unspecified bacterial pneumonia; I13.0 Hypertensive heart and chronic kidney disease with heart failure and stage 1 through stage 4 chronic kidney disease, or unspecified chronic kidney disease; N17.9 Acute kidney failure, unspecified; N18.9 Chronic kidney disease, unspecified; E10.22 Type 1 diabetes mellitus with diabetic chronic kidney disease; E10.65 Type 1 diabetes mellitus with hyperglycemia; D63.1 Anemia in chronic kidney disease; Z79.82 Long term (current) use of aspirin; Z79.02 Long term (current) use of antithrombotics/antiplatelets; I25.10 Atherosclerotic heart disease of native coronary artery without angina pectoris; Z95.5 Presence of coronary angioplasty implant and graft; E78.5 Hyperlipidemia, unspecified; I25.2 Old myocardial infarction; E86.0 Dehydration; E87.5 Hyperkalemia; E55.9 Vitamin D deficiency, unspecified; R74.01 Elevation of levels of liver transaminase levels
CPT/HCPCS: 36415; 36416; 36430; 71045; 76770; 80048; 80053; 81001; 82009; 82728; 82962; 83540; 83550; 83735; 83880; 84145; 85014; 85018; 85025; 85378; 86850; 86900; 86920; 87040; 87635; 87641; 87804; 93005; 93970; 94640; 94760; 96365; 96372; 99213; 99285; J0248; J0696; J1100; J1644; J1815; J1940; J2543; J7030; J7626; J8540; P9016